=== PATIENT | female | born 1930 | race Caucasian/White ===

== ENCOUNTER 2016-12-05 17:46 | Emergency (ER) | payer OTHER ==
[~2016-12-05] VITALS: Ht 160 cm; Wt 82.7 kg
[~2016-12-05 17:46] MED LIST: ASPEC81 PO; BUME0.5T3 PO; DIGO0.122 PO; GLC500 PO; LOSA1TAB PO; METO50TA17 PO; MULT-831 PO; NAPR220T40 PO; OMEG10007 PO
[2016-12-05 18:00] VITALS: TEMP 36.3; Ht 160 cm; Wt 82.7 kg
[2016-12-05] MEDS ORDERED: ASPI81TA28 PO (18:16)
[2016-12-05] MEDS ORDERED: SPRIN/30 INH (18:22)
[2016-12-05 19:08] LABS: URINE APPEARANCE CLEAR (CLEAR); URINE BILIRUBIN NEG (NEG); URINE COLOR YELLOW; URINE EPITHELIAL CELL AUTO 0-5 /lpf (0-5); URINE NITRITE NEG (NEG); URINE PH 5.5 (4.5-7.5); UROBILINOGEN NEG (NEG); ZZURINE CULT IF INDIC CATH NO
[2016-12-05 19:12] LABS: MANUAL MICROSCOPIC REQUIRED? NO; REVIEW REQ? NO
--- NOTE | 2016-12-05 19:30 | DIAGNOSTIC IMAGING REPORT ---
CHEST ONE VIEW PORTABLE CLINICAL HISTORY: 86 years-old Female presenting with AMS. TECHNIQUE: Portable upright AP view of the chest was obtained. COMPARISON: 03/18/2013. FINDINGS: Left-sided pacer with leads to the right atrium and right ventricular apex. Mild enlargement of the cardiac silhouette. Prominence of main pulmonary artery. Atherosclerosis of the aortic arch. Hazy bibasilar groundglass opacities. Trace right pleural effusion may be present. Osseous structures and upper abdomen normal. IMPRESSION: 1. Hazy bibasilar opacities in the setting of cardiomegaly suggests mild pulmonary edema. Electronically signed by: Live Middleton M.D. 12/05/2016 7:29 PM Dictated Date/Time: 12/05/2016 7:27 PM
[2016-12-05 19:39] LABS: BASO ABS # 0.06 K/uL (0-0.2); COMPLETE YES; EOS % 1.1 %; HEMATOCRIT 39.9 % (37-47); IG% 0.2 %; LYMPH % 31.2 %; LYMPH ABS # 1.94 K/uL (1.2-3.4); MEAN CELL VOLUME 91.3 fL (80-100); MEAN CORPUSCULAR HEMOGLOBIN 31.8 pg (25-34); MEAN CORPUSCULAR HGB CONC 34.8 g/dl (32-36); MEAN PLATELET VOLUME 10.1 fL (7.4-10.4); NEUT % 53.5 %; PLATELET COUNT 164 K/uL (130-400); RED BLOOD COUNT 4.37 M/uL (4.2-5.4); WHITE BLOOD COUNT 6.22 K/uL (4.8-10.8)
--- NOTE | 2016-12-05 19:48 | DIAGNOSTIC IMAGING REPORT ---
CT OF THE HEAD WITHOUT CONTRAST CLINICAL HISTORY: Altered mental status. COMPARISON STUDY: Head CT March 15, 2013 and MRI of the brain March 16, 2013. CT DOSE: 537.48 mGy.cm TECHNIQUE: Helical axial images of the head were obtained without IV contrast. Automated exposure control was utilized for the study. FINDINGS: No acute intracranial hemorrhage, midline shift or mass effect is present. Ventricular system is stable. Basilar cisterns are patent. There are no extra-axial collections. White matter hypodensity suggests small vessel disease. There are no CT findings to suggest acute dural sinus thrombosis or acute territorial infarct. The left mastoid air cells are largely opacified. There are no significant calvarial abnormality. IMPRESSION: 1. No acute intracranial findings. 2. Largely opacified left mastoid air cells. Electronically signed by: Connor Salinas M.D. 12/05/2016 7:47 PM Dictated Date/Time: 12/05/2016 7:41 PM
[2016-12-05 19:58] LABS: BUN/CREATININE RATIO 17.8 (10-20); CALCIUM 9.8 mg/dl (8.5-10.1)
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
[2016-12-06] MEDS ORDERED: METOPROLOL TARTRATE 50 MG TAB PO STA (00:04)
--- NOTE | 2016-12-06 04:25 | EMERGENCY ROOM VISIT NOTE ---
ED Visit Note First contact with patient: 02:04 This case was signed out to me at change of shift awaiting bed placement. The patient is currently resting. The bed search was suspended and will resume in the morning. 0420: The patient is sleeping at this time. I will prescribe her morning medications. The case will be signed out to Dr. Milan at change of shift. The bed search will resume.
--- NOTE | 2016-12-06 06:58 | EMERGENCY ROOM VISIT NOTE ---
ED Visit Note First contact with patient: 06:54 The patient was taken in signout from Dr. Coelho at the change of shift. Please see that note for details. The patient was pending bed placement on a 302 warrant. Daily medications were ordered. The patient was reassessed and was in good spirits. She was accepted at [facility] and was transferred.
[2016-12-06] MEDS ORDERED: METO25TA56 PO (09:38)
[2016-12-06] MEDS ORDERED: TIOTROPIUM BROMIDE 5 PUFF/90 MCG INH INH STA (10:09)
[2016-12-06] MEDS ORDERED: METOPROLOL TARTRATE 25 MG TAB PO STA (10:09)
[2016-12-06] MEDS ORDERED: ASPIRIN 81 MG CHEW PO STA (10:09)
[2016-12-06] MEDS ORDERED: BUMETANIDE 1 MG TAB PO ONE (10:15)
[2016-12-06] MEDS ORDERED: APR/25 PO (11:07)
[2016-12-06 16:34] VITALS: BP 136/70; PULSE 88; O2SAT 96
== END 2016-12-06 16:49 | disposition short-term general hospital (02) ==
LOC: C.EDB 17:47 → C.EDA 12-06 16:49
DX: F39 Unspecified mood [affective] disorder (principal); F22 Delusional disorders; I48.91 Unspecified atrial fibrillation; J44.9 Chronic obstructive pulmonary disease, unspecified; E11.9 Type 2 diabetes mellitus without complications; I44.7 Left bundle-branch block, unspecified; Z87.891 Personal history of nicotine dependence; Z79.82 Long term (current) use of aspirin; Z83.3 Family history of diabetes mellitus

== ENCOUNTER 2016-12-19 19:33 | Emergency (ER) | payer OTHER ==
[~2016-12-19] VITALS: Ht 160 cm; Wt 80.0 kg
[~2016-12-19 19:33] MED LIST changes: +APR/25 PO; -ASPEC81 PO; +ASPI81TA28 PO; -DIGO0.122 PO; -GLC500 PO; -LOSA1TAB PO; +METO25TA56 PO; -METO50TA17 PO; -OMEG10007 PO; +SPRIN/30 INH
[2016-12-19 19:41] VITALS: TEMP 36.6; Ht 160 cm; Wt 80.0 kg
[2016-12-19] MEDS ORDERED: RISP2TAB22 PO (20:19)
[2016-12-19 20:36] LABS: BASO % 0.7 %; BASO ABS # 0.05 K/uL (0-0.2); COMPLETE YES; EOS % 1.6 %; IG% 0.3 %; LYMPH % 28.9 %; LYMPH ABS # 2.17 K/uL (1.2-3.4); MEAN CELL VOLUME 90.5 fL (80-100); MEAN CORPUSCULAR HEMOGLOBIN 31.6 pg (25-34); MEAN CORPUSCULAR HGB CONC 34.9 g/dl (32-36); MEAN PLATELET VOLUME 10.5 fL (7.4-10.4); MONO % 9.9 %; NEUT % 58.6 %; PLATELET COUNT 159 K/uL (130-400); RED BLOOD COUNT 4.31 M/uL (4.2-5.4); WHITE BLOOD COUNT 7.51 K/uL (4.8-10.8)
[2016-12-19 20:43] LABS: CALCIUM 9.6 mg/dl (8.5-10.1); CREATININE 1.4 mg/dl (0.60-1.20)
[2016-12-19 20:54] LABS: THYROID STIMULATING HORMONE 2.99 uIu/ml (0.300-4.500)
[2016-12-19 21:01] LABS: ACETAMINOPHEN < 2 ug/ml (10-30)
[2016-12-19 21:16] LABS: MANUAL MICROSCOPIC REQUIRED? NO; REVIEW REQ? NO; URINE APPEARANCE TURBID (CLEAR); URINE BILIRUBIN NEG (NEG); URINE COLOR DK YELLOW; URINE EPITHELIAL CELL AUTO >30 /lpf (0-5); URINE NITRITE POS (NEG); URINE SPECIFIC GRAVITY 1.014 (1.000-1.030); UROBILINOGEN NEG (NEG); ZZUR CULT IF INDIC CLEAN CATCH YES
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
[2016-12-19 21:41] LABS: BENZODIAZEPINE, URINE NEG (NEG); COCAINE,URINE NEG (NEG); PHENCYCLIDINE, URINE NEG (NEG)
[2016-12-19] MEDS ORDERED: CEPHALEXIN MONOHYDRATE 250 MG CAP PO ONE (22:00)
[2016-12-20] MEDS ORDERED: TEMAZEPAM 15 MG CAP PO STA (00:19)
--- NOTE | 2016-12-20 03:48 | EMERGENCY ROOM VISIT NOTE ---
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 Current/Historical Medications Scheduled Aspirin (Aspirin Ec), 81 MG PO DAILY Hydralazine HCl (Hydralazine HCl), 0.5 TAB PO BID Metoprolol Tartrate (Lopressor) (Lopressor), 1 TAB PO BID Multiple Vitamins W/ Minerals (Icaps Lutein & Zeaxanthin), 1 CAP PO DAILY Risperidone (Risperdal), Unknown Dose PO HS Tiotropium [place] (Spiriva Handihaler), 1 CAP INH BID Scheduled PRN Bumetanide (Bumetanide), 0.5 MG PO DAILY PRN for WATER RETENTION Naproxen Sodium (Aleve), 220 MG PO for Pain Allergies Coded Allergies: Sulfa Antibiotics (Verified Allergy, Intermediate, ?, 12/19/16) Mesalamine (Verified Allergy, Mild, 12/19/16) BEE STING (Verified Allergy, Unknown, 12/19/16) Furosemide (Verified Allergy, Unknown, 12/19/16) Propofol (Verified Adverse Reaction, Severe, AFFECTED HER HEART, 12/19/16) SHE HAS A PACEMAKER Warfarin (Verified Adverse Reaction, Severe, ANTICOAG CONTRAIND-COLITIS/ GI BLEED, 12/19/16) Vital Signs Date Time Temp Pulse Resp B/P (MAP) Pulse Ox O2 Delivery O2 Flow Rate FiO2 12/19/16 23:58 67 18 139/64 94 Room Air 12/19/16 19:41 36.6 65 16 129/70 93 Room Air Laboratory Results 12/19/16 20:07 Red Blood Count 4.31, Mean Corpuscular Volume 90.5, Mean Corpuscular Hemoglobin 31.6, Mean Corpuscular Hemoglobin Concent 34.9, Mean Platelet Volume 10.5, Neutrophils (%) (Auto) 58.6, Lymphocytes (%) (Auto) 28.9, Monocytes (%) (Auto) 9.9, Eosinophils (%) (Auto) 1.6, Basophils (%) (Auto) 0.7, Neutrophils # (Auto) 4.41, Lymphocytes # (Auto) 2.17, Monocytes # (Auto) 0.74, Eosinophils # (Auto) 0.12, Basophils # (Auto) 0.05 12/19/16 20:07 Test 12/19/16 20:07 12/19/16 21:00 White Blood Count 7.51 K/uL (4.8-10.8) Red Blood Count 4.31 M/uL (4.2-5.4) Hemoglobin 13.6 g/dL (12.0-16.0) Hematocrit 39.0 % (37-47) Mean Corpuscular Volume 90.5 fL (80-100) Mean Corpuscular Hemoglobin 31.6 pg (25-34) Mean Corpuscular Hemoglobin Concent 34.9 g/dl (32-36) Platelet Count 159 K/uL (130-400) Mean Platelet Volume 10.5 fL (7.4-10.4) Neutrophils (%) (Auto) 58.6 % Lymphocytes (%) (Auto) 28.9 % Monocytes (%) (Auto) 9.9 % Eosinophils (%) (Auto) 1.6 % Basophils (%) (Auto) 0.7 % Neutrophils # (Auto) 4.41 K/uL (1.4-6.5) Lymphocytes # (Auto) 2.17 K/uL (1.2-3.4) Monocytes # (Auto) 0.74 K/uL (0.11-0.59) Eosinophils # (Auto) 0.12 K/uL (0-0.5) Basophils # (Auto) 0.05 K/uL (0-0.2) RDW Standard Deviation 43.7 fL (36.4-46.3) RDW Coefficient of Variation 13.3 % (11.5-14.5) Immature Granulocyte % (Auto) 0.3 % Immature Granulocyte # (Auto) 0.02 K/uL (0.00-0.02) Anion Gap 10.0 mmol/L (3-11) Est Creatinine Clear Calc Drug Dose 28.9 ml/min Estimated GFR () 39.3 Estimated GFR (Non- 33.9 BUN/Creatinine Ratio 18.0 (10-20) Calcium Level 9.6 mg/dl (8.5-10.1) Total Bilirubin 0.5 mg/dl (0.2-1) Direct Bilirubin 0.1 mg/dl (0-0.2) Aspartate Amino Transf (AST/SGOT) 22 U/L (15-37) Alanine Aminotransferase (ALT/SGPT) 33 U/L (12-78) Alkaline Phosphatase 76 U/L (45-117) Total Protein 7.7 gm/dl (6.4-8.2) Albumin 3.7 gm/dl (3.4-5.0) Thyroid Stimulating Hormone (TSH) 2.990 uIu/ml (0.300-4.500) Salicylates Level < 1.7 mg/dl (2.8-20) Acetaminophen Level < 2 ug/ml (10-30) Ethyl Alcohol mg/dL < 3.0 mg/dl (0-3) Urine Color DK YELLOW Urine Appearance TURBID (CLEAR) Urine pH 5.0 (4.5-7.5) Urine Specific [place] 1.014 (1.000-1.030) Urine Protein TRACE (NEG) Urine Glucose (UA) NEG (NEG) Urine Ketones NEG (NEG) Urine Occult Blood TRACE (NEG) Urine Nitrite POS (NEG) Urine Bilirubin NEG (NEG) Urine Urobilinogen NEG (NEG) Urine Leukocyte Esterase LARGE (NEG) Urine WBC (Auto) >30 /hpf (0-5) Urine RBC (Auto) 0-4 /hpf (0-4) Urine Hyaline Casts (Auto) 0 /lpf (0-5) Urine Epithelial Cells (Auto) >30 /lpf (0-5) Urine Bacteria (Auto) 4+ (NEG) Urine Opiates Screen NEG (NEG) Urine Methadone, Qualitative NEG (NEG) Urine Barbiturates NEG (NEG) Urine Phencyclidine (PCP) Level NEG (NEG) Ur Amphetamine/Methamphetamine NEG (NEG) MDMA (Ecstasy) Screen NEG (NEG) Urine Benzodiazepines Screen NEG (NEG) Urine Cocaine Metabolite NEG (NEG) Urine Marijuana (THC) NEG (NEG) Medications Administered Medications (Trade) Dose Ordered Sig/Vero Route Start Time Stop Time Status Last Admin Dose Admin Cephalexin Monohydrate (Keflex Cap) 500 mg NOW ONCE PO 12/19/16 22:00 12/19/16 22:01 DC 12/19/16 22:02 500 MG Temazepam (Restoril Cap) 15 mg ONE STAT PO 12/20/16 00:19 12/20/16 00:20 DC 12/20/16 00:39 15 MG Departure Information Impression Primary Impression: Paranoia (psychosis) Additional Impression: UTI (urinary tract infection) Dispostion Still a Patient Referrals Carol Mccarty M.D. (PCP) Forms HOME CARE DOCUMENTATION FORM, IMPORTANT VISIT INFORMATION Patient Instructions [facility] Additional Instructions Diagnosis: UTI, paranoia Keflex 500 mg three times daily for 7 days. Drink plenty of fluids. Problem Qualifiers
[2016-12-20] MEDS ORDERED: METOPROLOL TARTRATE 25 MG TAB PO SCH (08:45)
[2016-12-20] MEDS ORDERED: METOPROLOL TARTRATE 50 MG TAB ONE (09:14)
--- NOTE | 2016-12-20 16:29 | EMERGENCY ROOM VISIT NOTE ---
ED Visit Note Patient resting comfortably with no complaints. Patient signed out to Dr. Granados at 4:30 PM awaiting transport for placement.
[2016-12-20] MEDS ORDERED: TIOTROPIUM BROMIDE 5 PUFF/90 MCG INH INH SCH (16:30)
--- NOTE | 2016-12-20 17:07 | EMERGENCY ROOM VISIT NOTE ---
ED Visit Note Received patient in signout from Dr. Levine. Patient will be transferred to mental health acute care. 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 Current/Historical Medications Scheduled Aspirin (Aspirin Ec), 81 MG PO DAILY Hydralazine HCl (Hydralazine HCl), 0.5 TAB PO BID Metoprolol Tartrate (Lopressor) (Lopressor), 1 TAB PO BID Multiple Vitamins W/ Minerals (Icaps Lutein & Zeaxanthin), 1 CAP PO DAILY Risperidone (Risperdal), Unknown Dose PO HS Tiotropium [place] (Spiriva Handihaler), 1 CAP INH BID Scheduled PRN Bumetanide (Bumetanide), 0.5 MG PO DAILY PRN for WATER RETENTION Naproxen Sodium (Aleve), 220 MG PO for Pain Allergies Coded Allergies: Sulfa Antibiotics (Verified Allergy, Intermediate, ?, 12/19/16) Mesalamine (Verified Allergy, Mild, 12/19/16) BEE STING (Verified Allergy, Unknown, 12/19/16) Furosemide (Verified Allergy, Unknown, 12/19/16) Propofol (Verified Adverse Reaction, Severe, AFFECTED HER HEART, 12/19/16) SHE HAS A PACEMAKER Warfarin (Verified Adverse Reaction, Severe, ANTICOAG CONTRAIND-COLITIS/ GI BLEED, 12/19/16) Vital Signs Date Time Temp Pulse Resp B/P (MAP) Pulse Ox O2 Delivery O2 Flow Rate FiO2 12/20/16 13:56 145/82 12/20/16 13:44 68 22 161/74 94 Nasal Cannula 2.0 12/20/16 11:15 61 20 110/65 95 Nasal Cannula 2.0 12/20/16 09:00 69 20 144/72 98 Nasal Cannula 2.0 12/20/16 06:00 20 NIBP 99 Nasal Cannula 2.0 12/19/16 23:58 67 18 139/64 94 Room Air 12/19/16 19:41 36.6 65 16 129/70 93 Room Air Laboratory Results 12/19/16 20:07 Red Blood Count 4.31, Mean Corpuscular Volume 90.5, Mean Corpuscular Hemoglobin 31.6, Mean Corpuscular Hemoglobin Concent 34.9, Mean Platelet Volume 10.5, Neutrophils (%) (Auto) 58.6, Lymphocytes (%) (Auto) 28.9, Monocytes (%) (Auto) 9.9, Eosinophils (%) (Auto) 1.6, Basophils (%) (Auto) 0.7, Neutrophils # (Auto) 4.41, Lymphocytes # (Auto) 2.17, Monocytes # (Auto) 0.74, Eosinophils # (Auto) 0.12, Basophils # (Auto) 0.05 12/19/16 20:07 Test 12/19/16 20:07 12/19/16 21:00 White Blood Count 7.51 K/uL (4.8-10.8) Red Blood Count 4.31 M/uL (4.2-5.4) Hemoglobin 13.6 g/dL (12.0-16.0) Hematocrit 39.0 % (37-47) Mean Corpuscular Volume 90.5 fL (80-100) Mean Corpuscular Hemoglobin 31.6 pg (25-34) Mean Corpuscular Hemoglobin Concent 34.9 g/dl (32-36) Platelet Count 159 K/uL (130-400) Mean Platelet Volume 10.5 fL (7.4-10.4) Neutrophils (%) (Auto) 58.6 % Lymphocytes (%) (Auto) 28.9 % Monocytes (%) (Auto) 9.9 % Eosinophils (%) (Auto) 1.6 % Basophils (%) (Auto) 0.7 % Neutrophils # (Auto) 4.41 K/uL (1.4-6.5) Lymphocytes # (Auto) 2.17 K/uL (1.2-3.4) Monocytes # (Auto) 0.74 K/uL (0.11-0.59) Eosinophils # (Auto) 0.12 K/uL (0-0.5) Basophils # (Auto) 0.05 K/uL (0-0.2) RDW Standard Deviation 43.7 fL (36.4-46.3) RDW Coefficient of Variation 13.3 % (11.5-14.5) Immature Granulocyte % (Auto) 0.3 % Immature Granulocyte # (Auto) 0.02 K/uL (0.00-0.02) Anion Gap 10.0 mmol/L (3-11) Est Creatinine Clear Calc Drug Dose 28.9 ml/min Estimated GFR () 39.3 Estimated GFR (Non- 33.9 BUN/Creatinine Ratio 18.0 (10-20) Calcium Level 9.6 mg/dl (8.5-10.1) Total Bilirubin 0.5 mg/dl (0.2-1) Direct Bilirubin 0.1 mg/dl (0-0.2) Aspartate Amino Transf (AST/SGOT) 22 U/L (15-37) Alanine Aminotransferase (ALT/SGPT) 33 U/L (12-78) Alkaline Phosphatase 76 U/L (45-117) Total Protein 7.7 gm/dl (6.4-8.2) Albumin 3.7 gm/dl (3.4-5.0) Thyroid Stimulating Hormone (TSH) 2.990 uIu/ml (0.300-4.500) Salicylates Level < 1.7 mg/dl (2.8-20) Acetaminophen Level < 2 ug/ml (10-30) Ethyl Alcohol mg/dL < 3.0 mg/dl (0-3) Urine Color DK YELLOW Urine Appearance TURBID (CLEAR) Urine pH 5.0 (4.5-7.5) Urine Specific [place] 1.014 (1.000-1.030) Urine Protein TRACE (NEG) Urine Glucose (UA) NEG (NEG) Urine Ketones NEG (NEG) Urine Occult Blood TRACE (NEG) Urine Nitrite POS (NEG) Urine Bilirubin NEG (NEG) Urine Urobilinogen NEG (NEG) Urine Leukocyte Esterase LARGE (NEG) Urine WBC (Auto) >30 /hpf (0-5) Urine RBC (Auto) 0-4 /hpf (0-4) Urine Hyaline Casts (Auto) 0 /lpf (0-5) Urine Epithelial Cells (Auto) >30 /lpf (0-5) Urine Bacteria (Auto) 4+ (NEG) Urine Opiates Screen NEG (NEG) Urine Methadone, Qualitative NEG (NEG) Urine Barbiturates NEG (NEG) Urine Phencyclidine (PCP) Level NEG (NEG) Ur Amphetamine/Methamphetamine NEG (NEG) MDMA (Ecstasy) Screen NEG (NEG) Urine Benzodiazepines Screen NEG (NEG) Urine Cocaine Metabolite NEG (NEG) Urine Marijuana (THC) NEG (NEG) Medications Administered Medications (Trade) Dose Ordered Sig/Vero Route Start Time Stop Time Status Last Admin Dose Admin Cephalexin Monohydrate (Keflex Cap) 500 mg NOW ONCE PO 12/19/16 22:00 12/19/16 22:01 DC 12/19/16 22:02 500 MG Temazepam (Restoril Cap) 15 mg ONE STAT PO 12/20/16 00:19 12/20/16 00:20 DC 12/20/16 00:39 15 MG Metoprolol Tartrate (Lopressor Tab) 50 mg STK-MED ONCE .ROUTE 12/20/16 09:14 12/20/16 09:15 DC 12/20/16 09:19 25 MG Hydralazine HCl (Apresoline Tab) 25 mg STK-MED ONCE .ROUTE 12/20/16 09:14 12/20/16 09:15 DC 12/20/16 09:18 25 MG Tiotropium [place] (Spiriva Handihaler Inhaler) 1 puff NOW INH 12/20/16 16:30 01/19/17 16:29 12/20/16 16:56 1 PUFF Departure Information Impression Primary Impression: Paranoia (psychosis) Additional Impression: UTI (urinary tract infection) Dispostion Mental Health Acute Care Condition [facility]IR Referrals Carol Mccarty M.D. (PCP) Forms HOME CARE DOCUMENTATION FORM, IMPORTANT VISIT INFORMATION Patient Instructions [facility] Additional Instructions Diagnosis: UTI, paranoia Keflex 500 mg three times daily for 7 days. Drink plenty of fluids. Problem Qualifiers
[2016-12-20] MEDS ORDERED: METOPROLOL TARTRATE 50 MG TAB PO STA (18:57)
[2016-12-20] MEDS ORDERED: CEPHALEXIN MONOHYDRATE 250 MG CAP PO ONE (19:00)
[2016-12-20 20:24] VITALS: BP 101/55; PULSE 76; O2SAT 97
--- NOTE | 2016-12-21 13:05 | Pharmacy Progress Note ---
ED Pharmacist Culture FollowUp Date of Service: Dec 21, 2016. Per Dr. Granados's note / discharge instructions, patient should be receiving cephalexin, which should cover the Klebsiella pneumoniae growing from the patient's urine culture based on reported sensitivity to cefazolin.
--- NOTE | 2016-12-23 13:48 | EMERGENCY ROOM VISIT NOTE ---
ED Visit Note First contact with patient: 19:54 This patient was accepted at [facility] for inpatient geriatric psychiatric care. Secure transportation arrangements were made.
== END 2016-12-20 20:25 ==
LOC: C.EDB 19:35 → C.EDA 12-20 20:25
DX: F22 Delusional disorders (principal); N39.0 Urinary tract infection, site not specified; J44.9 Chronic obstructive pulmonary disease, unspecified; E11.9 Type 2 diabetes mellitus without complications; I48.91 Unspecified atrial fibrillation; Z87.891 Personal history of nicotine dependence; Z83.3 Family history of diabetes mellitus; Z79.82 Long term (current) use of aspirin; Z79.899 Other long term (current) drug therapy

== ENCOUNTER 2017-02-18 05:05 | Emergency (ER) | payer OTHER ==
[~2017-02-18] VITALS: Ht 160 cm; Wt 83.5 kg
[~2017-02-18 05:05] MED LIST changes: +RISP2TAB22 PO
[2017-02-18 05:12] VITALS: TEMP 36.5; Ht 160 cm; Wt 83.5 kg
--- NOTE | 2017-02-18 06:26 | EMERGENCY ROOM VISIT NOTE ---
History Report prepared by Elier: Rufino Dillon Under the Supervision of: Dr. Bridgette Nair M.D. First contact with patient: 05:13 Chief Complaint: SHORTNESS OF BREATH Stated Complaint: SHORT OF BREATH Nursing Triage Summary: Pt arrives S for evalution of sudden onset of sob r/t power loss; O2 concentrater not working. History of Present Illness The patient is a 86 year old female who presents to the Emergency Room with complaints of shortness of breath starting this morning after her power went out , so her oxygen flow shut off. She states that she is normally on 2L of oxygen at home, and this morning she woke up when it shut off. She then went outside to get fresh air, and she could still not catch her breath so she called the ambulance. The patient states that she has not seen her PCP in a long time, lives alone, and she is unsure if she is on the correct dosage of medications and oxygen. She additionally she normally takes bumetanide, though she has not taken it the past few days, and her legs feel more swollen. The patient states that she has been having a cold recently and is having a runny nose and a cough. The patient has a history of A-fib, COPD, diabetes, and kidney disease. She also states that she is a former smoker. Source of History: patient Onset: this morning Position: other (global) Quality: other (shortness of breath) Timing: constant Associated Symptoms: + cough Note: Associated symptoms: Runny nose Review of Systems See HPI for pertinent positives & negatives. A total of 10 systems reviewed and were otherwise negative. 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, TYPE II OR UNSPEC TYPE, NOT UNCNTRLD Family History Diabetes mellitus FH: cancer FH: heart disease Social History Smoking Status: Former Smoker Marital Status: Housing Status: lives alone Occupation Status: retired Current/Historical Medications Scheduled Aspirin (Aspirin Ec), 81 MG PO Q2D Metoprolol Tartrate (Lopressor) (Lopressor), 50 MG PO BID Multiple Vitamins W/ Minerals (Icaps Lutein & Zeaxanthin), 1 CAP PO BID Tiotropium [place] (Spiriva Handihaler), 1 CAP INH BID Scheduled PRN Bumetanide (Bumetanide), 0.5 MG PO DAILY PRN for WATER RETENTION Naproxen Sodium (Aleve), 220 MG PO UD PRN for Pain Allergies Coded Allergies: Sulfa Antibiotics (Verified Allergy, Intermediate, ?, 12/19/16) Mesalamine (Verified Allergy, Mild, 12/19/16) BEE STING (Verified Allergy, Unknown, 12/19/16) Furosemide (Verified Allergy, Unknown, 12/19/16) Propofol (Verified Adverse Reaction, Severe, AFFECTED HER HEART, 12/19/16) SHE HAS A PACEMAKER Warfarin (Verified Adverse Reaction, Severe, ANTICOAG CONTRAIND-COLITIS/ GI BLEED, 12/19/16) Physical Exam Vital Signs Date Time Temp Pulse Resp B/P (MAP) Pulse Ox O2 Delivery O2 Flow Rate FiO2 02/18/17 05:24 Room Air 02/18/17 05:14 93 Nasal Cannula 3.0 02/18/17 05:12 36.5 78 24 172/87 95 Nasal Cannula Physical Exam Vital signs reviewed. General: Elderly-appearing female, in no significant distress. On nasal cannula oxygen. HEENT: No scleral icterus, PERRLA, neck supple. Atraumatic. Cardiovascular: Regular rate and rhythm, no extra sounds. Pulmonary: Clear to auscultation bilaterally, normal work of breathing. Abdomen: Soft, nontender, nondistended, positive bowel sounds. Musculoskeletal: Atraumatic, 1+ pitting edema bilaterally. Neurologic: Patient awake alert and oriented x 3 Skin: Warm, dry, no rash Medical Decision & Procedures ED Course 0610: Past medical records reviewed. The patient was evaluated in room B5. A complete history and physical examination was performed. Medical Decision Differential diagnosis: Etiologies such as situational stressors, infections, reactive airway disease, pneumonia, pneumothorax, COPD, CHF, cardiac ischemia, pulmonary embolism, musculoskeletal, gastrointestinal, as well as others were entertained. This patient was evaluated and appeared to be in no significant distress. The patient is feeling much improved after supplemental nasal cannula oxygen was restarted. Pt has not been taking bumex so this was administered in the ED. Pt denies any complaints at this time, states her nasal congestion is improved. She declines and decongestants. The patient has a case aide through [employer]. The office on aging is due for a second visit tomorrow to help make arrangements for the patient's needs. She is comfortable with the plan for discharge and this will be arranged after the power is restored to her area. Impression Primary Impression: SOB (shortness of breath) Additional Impression: Supplemental oxygen dependent Scribe Attestation The scribe's documentation has been prepared under my direction and personally reviewed by me in its entirety. I confirm that the note above accurately reflects all work, treatment, procedures, and medical decision making performed by me. Departure Information Referrals Bree Red D.O. (PCP) Patient Instructions [facility] Problem Qualifiers
[2017-02-18] MEDS ORDERED: METO50TA16 PO (06:38)
[2017-02-18] MEDS ORDERED: BUMETANIDE 1 MG TAB PO ONE (07:00)
[2017-02-18 11:02] VITALS: BP 127/71; PULSE 61; O2SAT 95
== END 2017-02-18 11:40 | disposition home or self-care (01) ==
LOC: EDBD 05:05 → C.EDB 05:12
DX: R06.02 Shortness of breath (principal); Z99.81 Dependence on supplemental oxygen; I48.91 Unspecified atrial fibrillation; J44.9 Chronic obstructive pulmonary disease, unspecified; E11.9 Type 2 diabetes mellitus without complications; N28.9 Disorder of kidney and ureter, unspecified; Z87.891 Personal history of nicotine dependence; Z83.3 Family history of diabetes mellitus; Z80.9 Family history of malignant neoplasm, unspecified; Z79.82 Long term (current) use of aspirin; Z79.899 Other long term (current) drug therapy

== ENCOUNTER 2017-05-09 10:59 | Emergency (ER) | payer OTHER ==
[~2017-05-09] VITALS: Ht 160 cm; Wt 79.0 kg
[~2017-05-09 10:59] MED LIST changes: -APR/25 PO; -METO25TA56 PO; +METO50TA16 PO; -RISP2TAB22 PO
[2017-05-09 11:13] VITALS: TEMP 36.4; Ht 160 cm; Wt 79.0 kg
[2017-05-09 11:53] LABS: BASO ABS # 0.05 K/uL (0-0.2); COMPLETE YES; EOS % 1.6 %; HEMATOCRIT 40.4 % (37-47); IG% 0.2 %; LYMPH % 21.5 %; LYMPH ABS # 1.06 K/uL (1.2-3.4); MEAN CELL VOLUME 91.8 fL (80-100); MEAN CORPUSCULAR HEMOGLOBIN 31.1 pg (25-34); MEAN CORPUSCULAR HGB CONC 33.9 g/dl (32-36); NEUT % 63.7 %; PLATELET COUNT 126 K/uL (130-400); WHITE BLOOD COUNT 4.92 K/uL (4.8-10.8)
[2017-05-09 12:10] LABS: BUN/CREATININE RATIO 25.1 (10-20); CALCIUM 9.4 mg/dl (8.5-10.1); CREATININE 0.97 mg/dl (0.60-1.20); POTASSIUM 4.4 mmol/L (3.5-5.1)
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
[2017-05-09 16:22] VITALS: BP 123/76; PULSE 79; O2SAT 97
== END 2017-05-09 16:23 | disposition home or self-care (01) ==
LOC: C.EDC 10:59 → EDBD 10:59 → C.EDC 16:23
DX: K62.5 Hemorrhage of anus and rectum (principal); Z80.0 Family history of malignant neoplasm of digestive organs; Z79.899 Other long term (current) drug therapy; I48.91 Unspecified atrial fibrillation; J44.9 Chronic obstructive pulmonary disease, unspecified; E11.9 Type 2 diabetes mellitus without complications; Z83.3 Family history of diabetes mellitus; Z80.9 Family history of malignant neoplasm, unspecified; Z87.891 Personal history of nicotine dependence; Z79.82 Long term (current) use of aspirin

== ENCOUNTER 2017-07-28 05:08 | Inpatient (IN) | payer OTHER ==
[2017-07-28] VITALS (9 sets, daily range): BP systolic 93–147; BP diastolic 54–83; PULSE 60–83; TEMP 36.3–36.5; O2SAT 92–96; Ht 160 cm; Wt 78.2 kg
[~2017-07-28] VITALS: Ht 160 cm; Wt 78.2 kg
[2017-07-28] MEDS ORDERED: ALBUT/IPRATROP 3MG/0.5MG NEB 3 ML VIAL INH STA (05:23)
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
[2017-07-28 05:49] LABS: BASO ABS # 0.06 K/uL (0-0.2); EOS % 1.8 %; EOS ABS # 0.11 K/uL (0-0.5); HEMATOCRIT 37.7 % (37-47); HEMOGLOBIN 12.9 g/dL (12.0-16.0); IG# 0.01 K/uL (0.00-0.02); LYMPH % 26.7 %; LYMPH ABS # 1.61 K/uL (1.2-3.4); MEAN CELL VOLUME 91.7 fL (80-100); MEAN CORPUSCULAR HEMOGLOBIN 31.4 pg (25-34); MEAN CORPUSCULAR HGB CONC 34.2 g/dl (32-36); MEAN PLATELET VOLUME 10.2 fL (7.4-10.4); MONO % 12.3 %; MONO ABS # 0.74 K/uL (0.11-0.59); NEUT ABS # 3.51 K/uL (1.4-6.5); PLATELET COUNT 119 K/uL (130-400); RED CELL DISTRIBUTION WIDTH CV 14.5 % (11.5-14.5); RED CELL DISTRIBUTION WIDTH SD 48.4 fL (36.4-46.3); WHITE BLOOD COUNT 6.04 K/uL (4.8-10.8)
[2017-07-28 05:59] LABS: BLOOD UREA NITROGEN 25 mg/dl (7-18); CALCIUM 9.4 mg/dl (8.5-10.1); CARBON DIOXIDE 23 mmol/L (21-32); CREATININE 1.08 mg/dl (0.60-1.20); GLUCOSE 128 mg/dl (70-99); POTASSIUM 4.4 mmol/L (3.5-5.1); SODIUM 134 mmol/L (136-145)
[2017-07-28] MEDS ORDERED: RISP0.5T4 PO (06:03)
[2017-07-28] MEDS ORDERED: VNTHFA/IN INH (06:06)
[2017-07-28] MEDS ORDERED: BUMETANIDE SOLN 1 MG/4 ML VIAL IV ONE (06:15)
--- NOTE | 2017-07-28 06:37 | DIAGNOSTIC IMAGING REPORT ---
SINGLE VIEW CHEST CLINICAL HISTORY: Dyspnea. FINDINGS: An AP, portable, upright chest radiograph is compared to study dated 12/05/2016. Correlation is made with chest CT dated 03/20/2013. The examination is degraded by portable technique and apical lordotic positioning. A 2-lead cardiac pacemaker partially obscures the left upper chest. The heart is enlarged and there is atherosclerotic calcification of the thoracic aorta. There is pulmonary vascular congestion and mild interstitial edema. There is emphysema and chronic interstitial thickening. Small pleural effusions are identified. No pneumothorax is seen. The skeletal structures are osteopenic. The bony thorax is grossly intact. IMPRESSION: 1. Cardiomegaly and cardiac pacemaker. There is evidence of congestive failure with mild interstitial edema. 2. Emphysema. 3. Small pleural effusions. Electronically signed by: Yakov Mendoza M.D. 07/28/2017 6:35 AM Dictated Date/Time: 07/28/2017 6:34 AM
[2017-07-28] MEDS ORDERED: NITROGLYCERIN 0.4 MG SL PER TAB CHARGE SL PRN (07:15)
[2017-07-28] MEDS ORDERED: PROCHLORPERAZINE INJ 5 MG in SYRINGE 4 ML IV PRN (07:15)
[2017-07-28] MEDS ORDERED: ALBUT/IPRATROP 3MG/0.5MG NEB 3 ML VIAL INH PRN (07:15)
[2017-07-28] MEDS ORDERED: ACETAMINOPHEN 325 MG TAB PO PRN (07:15)
[2017-07-28 07:26] LABS: PTT PATIENT 24.5 SECONDS (21.0-31.0)
[2017-07-28] MEDS: TIOTROPIUM BROMIDE 5 PUFF/90 MCG INH INH SCH (09:44)
[2017-07-28] MEDS: METOPROLOL TARTRATE 50 MG TAB PO SCH ×2 (09:44→20:24)
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
--- NOTE | 2017-07-28 11:23 | DIAGNOSTIC IMAGING REPORT ---
ULTRASOUND BILATERAL LOWER EXTREMITY VENOUS CLINICAL HISTORY: Lower extremity edema. COMPARISON STUDY: Bilateral lower extremity venous ultrasound dated 03/20/2013. TECHNIQUE: Real-time, grayscale, and color Doppler sonography of the deep veins of the right and left lower extremity was performed from the inguinal crease to the calf. Compression and augmentation were utilized. FINDINGS: There is no sonographic evidence of deep venous thrombosis identified in the right or left lower extremity. The common femoral, superficial femoral, and popliteal veins are patent and normally compressible bilaterally. The greater saphenous vein and the profunda femoris vein at the junction with the common femoral vein are clear in both legs. The visualized calf veins are patent bilaterally. IMPRESSION: There is no sonographic evidence of deep venous thrombosis identified in the right or left lower extremity. Electronically signed by: Yakov Mendoza M.D. 07/28/2017 11:22 AM Dictated Date/Time: 07/28/2017 11:22 AM
--- NOTE | 2017-07-28 12:26 | Progress Note ---
Subjective Date of Service: Jul 28, 2017. Subjective Pt evaluation today including: conversation w/ patient, physical exam, lab review, review of studies, review of inpatient medication list Saw/examined the patient in room 284 She is doing better today Breathing status improving No chest pain today swelling in the lower extremities improved Problem List Medical Problems: (1) Acute exacerbation of CHF (congestive heart failure) Status: Acute (2) Delusions Status: Acute (3) Medical non-compliance Status: Acute (4) Mood disorder Status: Acute (5) Paranoia (psychosis) Status: Acute (6) Rectal bleed Status: Acute (7) SOB (shortness of breath) Status: Acute (8) Supplemental oxygen dependent Status: Acute (9) UTI (urinary tract infection) Status: Acute Review of Systems Constitutional: No fever, No chills Respiratory: + shortness of breath (improving), + dyspnea on exertion, No cough , No sputum, No wheezing, No dyspnea at rest, No hemoptysis Cardiac: + edema, No chest pain (resolved), No palpitations Abdomen: No pain, No nausea, No vomiting, No diarrhea Medications Current Inpatient Medications Medications (Trade) Dose Ordered Sig/Vero Route Start Time Stop Time Status Last Admin Dose Admin Acetaminophen (Tylenol Tab) 650 mg Q4H PRN PO 07/28/17 07:15 08/27/17 07:14 Nitroglycerin (Nitrostat Tab) 0.4 mg UD PRN SL 07/28/17 07:15 08/27/17 07:14 Aspirin (Ecotrin Tab) 81 mg Q2D PO 07/30/17 07:15 08/29/17 07:14 Metoprolol Tartrate (Lopressor Tab) 25 mg BID PO 07/28/17 09:30 08/27/17 09:29 07/28/17 09:44 25 MG Risperidone (Risperdal Tab) 0.5 mg HS PO 07/28/17 21:00 08/27/17 20:59 Miscellaneous Information (Order Awaiting Action) 1 ea QS N/A 07/28/17 16:00 08/27/17 15:59 Tramadol HCl (Ultram Tab) 25 mg Q6H PRN PO 07/28/17 07:15 08/27/17 07:14 Prochlorperazine Edisylate 5 mg/ Syringe 5 ml @ 5 mls/min Q6H PRN IV 07/28/17 07:15 08/27/17 07:14 Albuterol/ Ipratropium (Duoneb) 3 ml Q2H PRN INH 07/28/17 07:15 08/27/17 07:14 Tiotropium [place] (Spiriva Handihaler Inhaler) 2 puff QAM INH 07/28/17 09:30 08/27/17 09:29 07/28/17 09:44 2 PUFF Bumetanide 1 mg/ Syringe 4 ml @ 4 mls/min 1700 ONCE IV 07/28/17 17:00 07/28/17 17:01 Objective Vital Signs Date Time Temp Pulse Resp B/P (MAP) Pulse Ox O2 Delivery O2 Flow Rate FiO2 07/28/17 08:45 36.5 83 18 147/81 95 Nasal Cannula 4.0 07/28/17 08:00 Room Air 07/28/17 07:16 62 20 155/79 95 Nasal Cannula 4.0 07/28/17 06:31 64 20 154/74 94 Nasal Cannula 4.0 07/28/17 06:02 62 17 149/74 93 Nasal Cannula 4.0 07/28/17 05:50 72 07/28/17 05:40 88 Nasal Cannula 2.0 07/28/17 05:31 66 24 156/84 93 Nasal Cannula 4.0 07/28/17 05:15 Room Air 07/28/17 05:15 Room Air 07/28/17 05:15 36.4 78 19 174/82 93 Nasal Cannula 4.0 Physical Exam General Appearance: no apparent distress Respiratory/Chest: no respiratory distress, no accessory muscle use, + decreased breath sounds (decreasing breath sounds at the bases), + pertinent finding (no wheezing, rhonchi, rales appreciated; pacemaker in the L chest wall) Cardiovascular: regular rate, rhythm, no edema, no murmur Extremities: normal range of motion, non-tender, normal inspection, no pedal edema, no calf tenderness Neurologic/Psychiatric: no motor/sensory deficits, alert, normal mood/affect Laboratory Results Last 24 Hours Test 07/28/17 04:55 07/28/17 07:03 07/28/17 07:11 White Blood Count 6.04 K/uL Red Blood Count 4.11 M/uL Hemoglobin 12.9 g/dL Hematocrit 37.7 % Mean Corpuscular Volume 91.7 fL Mean Corpuscular Hemoglobin 31.4 pg Mean Corpuscular Hemoglobin Concent 34.2 g/dl Platelet Count 119 K/uL Mean Platelet Volume 10.2 fL Neutrophils (%) (Auto) 58.0 % Lymphocytes (%) (Auto) 26.7 % Monocytes (%) (Auto) 12.3 % Eosinophils (%) (Auto) 1.8 % Basophils (%) (Auto) 1.0 % Neutrophils # (Auto) 3.51 K/uL Lymphocytes # (Auto) 1.61 K/uL Monocytes # (Auto) 0.74 K/uL Eosinophils # (Auto) 0.11 K/uL Basophils # (Auto) 0.06 K/uL RDW Standard Deviation 48.4 fL RDW Coefficient of Variation 14.5 % Immature Granulocyte % (Auto) 0.2 % Immature Granulocyte # (Auto) 0.01 K/uL Sodium Level 134 mmol/L Potassium Level 4.4 mmol/L Chloride Level 103 mmol/L Carbon Dioxide Level 23 mmol/L Anion Gap 8.0 mmol/L Blood Urea Nitrogen 25 mg/dl Creatinine 1.08 mg/dl Est Creatinine Clear Calc Drug Dose 38.4 ml/min Estimated GFR () 53.8 Estimated GFR (Non- 46.4 BUN/Creatinine Ratio 23.0 Random Glucose 128 mg/dl Calcium Level 9.4 mg/dl Magnesium Level 1.9 mg/dl Troponin I < 0.015 ng/ml Pro-B-Type Natriuretic Peptide 4443 pg/ml Thyroid Stimulating Hormone (TSH) 3.660 uIu/ml Chemistry Specimen Hemolysis Activated Partial Thromboplast Time 24.5 SECONDS Partial Thromboplastin Ratio 0.9 Carboxyhemoglobin 0.0 % [facility] Assessment and Plan This is an 86 year old female with a PMH of COPD and chronic respiratory failure on 2L of O2 continuously, paroxysmal atrial fibrillation s/p multiple ablations and s/p pacemaker in situ - not a anticoagulation candidate due to bleeding risk, ulcerative colitis with episodes of rectal bleed, CKD stage 3 - presents with worsening shortness of breath Acute on Chronic Hypoxic Respiratory Failure likely secondary to Pulmonary Hypertension last echo in 2014, noted to have a normal LVEF with elevated pulmonary systolic pressures patient presented with fluid overload; as noted on CXR and BNP testing given IV Bumex with good response she states she is feeling better chronically uses 2L of O2 cardiology consulted echo ordered and pending COPD does not appear to be in COPD exacerbation there is no wheezing on exam, no accessory muscle use, etc. will continue Spiriva and chronic O2 use Paroxysmal A. Fib she is ventricularly paced currently continue [id number]-jacinto not a candidate for anticoagulation; aspirin 81mg instead DVT ppx SCDs FULL CODE
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
--- NOTE | 2017-07-28 16:15 | ECHOCARDIOGRAM REPORT ---
*NOTICE TO RECEIVING [employer] This information is strictly Confidential and protected under [place] law. [place] law prohibits you from making any further disclosure of this information unless further disclosure is expressly permitted by the written consent of the person to whom it pertains or is authorized by law. A general authorization for the release of medical or other information is not sufficient for this purpose. Hospital accepts no responsibility if the information is made available to any other person, INCLUDING THE PATIENT. Interpretation Summary * Name: MEGA BE[place] Study Date: 07/28/2017 01:54 PM BP: 147/81 mmHg * Patient Location: [facility]\S\N284\[id number]\1 HR: 83 * : 1930 (M/d/yyyy) Gender: Female Height: 63 in * Age: 86 yrs Ethnicity: [place] Weight: 185 lb * Ordering Physician: Bakari Spencer * Referring Physician: Self, Referred * Performed By: Celina Almazan RDCS * * Reason For Study: Congestive Heart Failure * BSA: 1.9 m2 * -- Conclusions -- * There is moderate concentric left ventricular hypertrophy. * Ejection Fraction = 60-65%. * The right ventricle is moderately dilated. * The right ventricular systolic function is mild to moderately reduced. * The left atrium is severely dilated. * The right atrium is severely dilated. * There is moderate to severe tricuspid regurgitation. * There is mild to moderate mitral regurgitation. * Aortic valve sclerosis moderate, without significant aortic valvular stenosis. * Mild to moderate aortic regurgitation. * The pulmonary artery systolic pressure is estimated to be 68 mmHg. Procedure Details * A complete two-dimensional transthoracic echocardiogram was performed (2D, M-mode, Doppler and color flow Doppler). Left Ventricle * The left ventricle is normal in size. * There is moderate concentric left ventricular hypertrophy. * Ejection Fraction = 60-65%. Right Ventricle * The right ventricle is moderately dilated. * The right ventricular systolic function is mild to moderately reduced. Atria * The left atrium is severely dilated. * The right atrium is severely dilated. * No ASD detected; PFO is not assessed. Mitral Valve * There is severe mitral annular calcification. * The mitral valve is not well visualized. * There is mild to moderate mitral regurgitation. Tricuspid Valve * The tricuspid valve is not well visualized, but is grossly normal. * There is moderate to severe tricuspid regurgitation. Aortic Valve * Aortic valve sclerosis moderate, without significant aortic valvular stenosis. * Mild to moderate aortic regurgitation. Pulmonic Valve * The pulmonic valve is not well visualized. * There is no significant pulmonary regurgitation. Great Vessels * The pulmonary artery systolic pressure is estimated to be 68 mmHg. Pericardium/Pleural * There is no pericardial effusion. MMode 2D Measurements and Calculations IVSd 1.1 cm IVSs 1.6 cm LVIDd 4.7 cm LVIDs 2.9 cm LVPWd 1.2 cm LVPWs 1.9 cm IVS/LVPW 0.87 FS 39.4 % EDV(Teich) 104.0 ml ESV(Teich) 31.3 ml EF(Teich) 69.9 % EDV(cubed) 106.0 ml ESV(cubed) 23.6 ml EF(cubed) 77.8 % % IVS thick 52.4 % % LVPW thick 51.5 % LV mass(C)d 201.6 grams LV mass(C)dI 107.8 grams/m\S\2 LV mass(C)s 194.9 grams LV mass(C)sI 104.2 grams/m\S\2 SV(Teich) 72.7 ml SI(Teich) 38.9 ml/m\S\2 SV(cubed) 82.4 ml SI(cubed) 44.1 ml/m\S\2 Ao root diam 2.9 cm Ao root area 6.8 cm\S\2 ACS 2.1 cm LA dimension 4.2 cm LA/Ao 1.4 LVAd ap4 13.5 cm\S\2 LVLd ap4 5.5 cm EDV(MOD-sp4) 30.9 ml EDV(sp4-el) 28.3 ml LVAs ap4 8.2 cm\S\2 LVLs ap4 5.4 cm ESV(MOD-sp4) 11.6 ml ESV(sp4-el) 10.7 ml EF(MOD-sp4) 62.4 % EF(sp4-el) 62.2 % LVAd ap2 25.0 cm\S\2 LVLd ap2 6.9 cm EDV(MOD-sp2) 80.6 ml EDV(sp2-el) 77.1 ml LVAs ap2 13.8 cm\S\2 LVLs ap2 6.2 cm ESV(MOD-sp2) 27.4 ml ESV(sp2-el) 26.1 ml EF(MOD-sp2) 66.1 % EF(sp2-el) 66.2 % LVLd %diff 20.3 % EDV(MOD-bp) 55.0 ml LVLs %diff 12.9 % ESV(MOD-bp) 18.7 ml EF(MOD-bp) 66.0 % SV(MOD-sp4) 19.3 ml SI(MOD-sp4) 10.3 ml/m\S\2 SV(MOD-sp2) 53.3 ml SI(MOD-sp2) 28.5 ml/m\S\2 SV(MOD-bp) 36.3 ml SI(MOD-bp) 19.4 ml/m\S\2 SV(sp4-el) 17.6 ml SI(sp4-el) 9.4 ml/m\S\2 SV(sp2-el) 51.0 ml SI(sp2-el) 27.3 ml/m\S\2 Doppler Measurements and Calculations MV E max kathia 164.4 cm/sec MV A max kathia 46.7 cm/sec MV E/A 3.5 MV dec time 0.27 sec Ao V2 max 156.1 cm/sec Ao max PG 9.7 mmHg Ao max PG (full) 6.6 mmHg AI max kathia 319.7 cm/sec AI max PG 43.7 mmHg AI dec slope 154.7 cm/sec\S\2 AI P1/2t 605.2 msec LV V1 max PG 3.2 mmHg LV V1 max 89.3 cm/sec PA V2 max 103.8 cm/sec PA max PG 4.3 mmHg TR max kathia 412.6 cm/sec
[2017-07-28] MEDS ORDERED: BUMETANIDE IV 1 MG in SYRINGE 0 ML IV ONE (17:00)
[2017-07-28] MEDS: RISPERIDONE 0.5 MG TAB PO SCH (20:21)
[2017-07-29 02:42] VITALS: BP 144/81; PULSE 71; TEMP 36.4; O2SAT 94
[2017-07-29] MEDS: TRAMADOL HCL 50 MG TAB PO PRN ×2 (04:28→21:12)
[2017-07-29 06:23] LABS: BASO % 0.5 %; BASO ABS # 0.05 K/uL (0-0.2); EOS % 2.5 %; EOS ABS # 0.26 K/uL (0-0.5); HEMATOCRIT 38.9 % (37-47); HEMOGLOBIN 13.2 g/dL (12.0-16.0); IG# 0.02 K/uL (0.00-0.02); LYMPH % 13.6 %; LYMPH ABS # 1.39 K/uL (1.2-3.4); MEAN CELL VOLUME 92.6 fL (80-100); MEAN CORPUSCULAR HEMOGLOBIN 31.4 pg (25-34); MEAN CORPUSCULAR HGB CONC 33.9 g/dl (32-36); MEAN PLATELET VOLUME 10.3 fL (7.4-10.4); MONO % 11.5 %; MONO ABS # 1.18 K/uL (0.11-0.59); NEUT % 71.7 %; NEUT ABS # 7.34 K/uL (1.4-6.5); PLATELET COUNT 133 K/uL (130-400); RED CELL DISTRIBUTION WIDTH CV 14.5 % (11.5-14.5); RED CELL DISTRIBUTION WIDTH SD 48.7 fL (36.4-46.3); WHITE BLOOD COUNT 10.24 K/uL (4.8-10.8)
[2017-07-29 06:56] LABS: CALCIUM 9.6 mg/dl (8.5-10.1); CREATININE 1.42 mg/dl (0.60-1.20); POTASSIUM 3.9 mmol/L (3.5-5.1)
[2017-07-29 07:08] LABS: HEMOGLOBIN A1C 6.9 % (4.5-5.6)
[2017-07-29] MEDS: TIOTROPIUM BROMIDE 5 PUFF/90 MCG INH INH SCH (07:42)
[2017-07-29] MEDS: METOPROLOL TARTRATE 50 MG TAB PO SCH ×2 (07:43→21:06)
[2017-07-29 08:06] VITALS: BP 118/76; PULSE 60; TEMP 36.4; O2SAT 96
--- NOTE | 2017-07-29 09:19 | Cardiology Follow-Up ---
Subjective General Date of Service: Jul 29, 2017. Chief Complaint: SOB Pt evaluation today including: conversation w/ patient, physical exam, chart review, lab review, review of studies, review of inpatient medication list History of Present Illness Awoke Saturday AM with dyspnea and cough. Feels better in regards to the above following two doses of IV Bumex on 07/28/2017 Notes bilateral lower extremity cramps since admission Labs this AM with mild hyponatremia, mild renal dysfunction. July 28, 2017 TTE Interpretation Summary ([facility], Dr. Bellamy): There is moderate concentric left ventricular hypertrophy. Ejection Fraction = 60-65%. The right ventricle is moderately dilated. The right ventricular systolic function is mild to moderately reduced. The left atrium is severely dilated. The right atrium is severely dilated. There is moderate to severe tricuspid regurgitation. There is mild to moderate mitral regurgitation. Aortic valve sclerosis moderate, without significant aortic valvular stenosis. Mild to moderate aortic regurgitation. The pulmonary artery systolic pressure is estimated to be 68 mmHg EKG dated and timed July 29, 2017 at 06:30:07 revealed underlying atrial fibrillation, ventricular paced rhythm. Telemetry: Atrial fibrillation in the 60's. Ventricular paced rhythm. Allergies Coded Allergies: Sulfa Antibiotics (Verified Allergy, Intermediate, ?, 05/09/17) Mesalamine (Verified Allergy, Mild, 05/09/17) BEE STING (Verified Allergy, Unknown, 05/09/17) Furosemide (Verified Allergy, Unknown, 05/09/17) Propofol (Verified Adverse Reaction, Severe, AFFECTED HER HEART, 05/09/17) SHE HAS A PACEMAKER Warfarin (Verified Adverse Reaction, Severe, ANTICOAG CONTRAIND-COLITIS/ GI BLEED, 05/09/17) Social History Smoking Status: Former Smoker Hx Tobacco Use In Past Year?: No Hx Alcohol Use - Type And Amou: No Hx Substance Use - Type And Am: No Problem List Medical Problems: (1) Acute exacerbation of CHF (congestive heart failure) Status: Acute (2) Delusions Status: Acute (3) Medical non-compliance Status: Acute (4) Mood disorder Status: Acute (5) Paranoia (psychosis) Status: Acute (6) Rectal bleed Status: Acute (7) SOB (shortness of breath) Status: Acute (8) Supplemental oxygen dependent Status: Acute (9) UTI (urinary tract infection) Status: Acute Physical Exam Vital Signs Last Vital Signs Documentation Date Time Temp Pulse Resp B/P (MAP) Pulse Ox O2 Delivery O2 Flow Rate FiO2 07/29/17 08:06 36.4 60 18 118/76 (90) 96 4.0 07/29/17 08:00 Room Air Physical Exam Constitutional: Level of Distress: NAD Psychiatric: Mental Status: active & alert Orientation: to place, to person, not oriented to time Head: normocephalic Eyes: Pupils: PERRLA Neck: pertinent finding (Normal JVP. No HJR) Lungs: Respiratory effort: no dyspnea Auscultation: no wheezing, no rales/crackles, no rhonchi, deminished air movement, decreased breath sounds Cardiovascular: Heart Auscultation: RRR, no rubs, II/ TU Abdomen: Bowel Sounds: normal Inspection & Palpation: soft, non-distended, no masses Extremities: no cyanosis, edema (Minimal edema), varicosities Neurologic: Cranial Nerves: grossly intact Assessment and Plan Assessment and Plan Admission with acute on chronic dyspnea Symptoms improved following two doses of IV Bumex History of right heart failure and diastolic dysfunction Severe oxygen dependent COPD Labs today with mild hyponatremia, renal dysfunction. Chronic atrial fibrillation Status post permanent pacemaker implantation in February 2013. Status post AV junction ablation in October 2014 Atrial flutter status post ablation Contraindications to anticoagulation Hypertension. History of hyperkalemia with past use of ACEI therapy as well as ARB. Dyslipidemia - uncontrolled with prior statin intolerance, declining alternative therapies. Paranoia RECOMMENDATIONS: Hold diuretics Check magnesium Interrogate pacemaker Sinker Puller and Psychiatry evaluations pending. Laboratory Results Last 24 Hours Test 07/28/17 11:50 07/28/17 11:53 07/28/17 16:37 07/28/17 20:53 Troponin I < 0.015 ng/ml Bedside Glucose 131 mg/dl 151 mg/dl 137 mg/dl Test 07/29/17 05:56 07/29/17 07:51 White Blood Count 10.24 K/uL Red Blood Count 4.20 M/uL Hemoglobin 13.2 g/dL Hematocrit 38.9 % Mean Corpuscular Volume 92.6 fL Mean Corpuscular Hemoglobin 31.4 pg Mean Corpuscular Hemoglobin Concent 33.9 g/dl Platelet Count 133 K/uL Mean Platelet Volume 10.3 fL Neutrophils (%) (Auto) 71.7 % Lymphocytes (%) (Auto) 13.6 % Monocytes (%) (Auto) 11.5 % Eosinophils (%) (Auto) 2.5 % Basophils (%) (Auto) 0.5 % Neutrophils # (Auto) 7.34 K/uL Lymphocytes # (Auto) 1.39 K/uL Monocytes # (Auto) 1.18 K/uL Eosinophils # (Auto) 0.26 K/uL Basophils # (Auto) 0.05 K/uL RDW Standard Deviation 48.7 fL RDW Coefficient of Variation 14.5 % Immature Granulocyte % (Auto) 0.2 % Immature Granulocyte # (Auto) 0.02 K/uL Sodium Level 134 mmol/L Potassium Level 3.9 mmol/L Chloride Level 98 mmol/L Carbon Dioxide Level 27 mmol/L Anion Gap 9.0 mmol/L Blood Urea Nitrogen 31 mg/dl Creatinine 1.42 mg/dl Est Creatinine Clear Calc Drug Dose 29.2 ml/min Estimated GFR () 38.7 Estimated GFR (Non- 33.4 BUN/Creatinine Ratio 22.1 Random Glucose 124 mg/dl Calcium Level 9.6 mg/dl Bedside Glucose 122 mg/dl
[2017-07-29 11:54] VITALS: BP 96/59; PULSE 64; TEMP 36.4; O2SAT 97
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
--- NOTE | 2017-07-29 15:10 | Progress Note ---
Subjective Date of Service: Jul 29, 2017. Subjective Pt evaluation today including: conversation w/ patient, physical exam, lab review, review of studies, review of inpatient medication list Saw/examined the patient in room 284 She states she feels fine her breathing is stable She tells me she is hearing and seeing things Problem List Medical Problems: (1) Acute exacerbation of CHF (congestive heart failure) Status: Acute (2) Delusions Status: Acute (3) Medical non-compliance Status: Acute (4) Mood disorder Status: Acute (5) Paranoia (psychosis) Status: Acute (6) Rectal bleed Status: Acute (7) SOB (shortness of breath) Status: Acute (8) Supplemental oxygen dependent Status: Acute (9) UTI (urinary tract infection) Status: Acute Review of Systems Constitutional: No fever, No chills Respiratory: No shortness of breath Cardiac: No chest pain, No edema, No palpitations Abdomen: No pain, No nausea, No vomiting, No diarrhea Psychiatric: + depression symptoms, + problem reported (hallucinations) Medications Current Inpatient Medications Medications (Trade) Dose Ordered Sig/Vero Route Start Time Stop Time Status Last Admin Dose Admin Acetaminophen (Tylenol Tab) 650 mg Q4H PRN PO 07/28/17 07:15 08/27/17 07:14 07/28/17 23:37 650 MG Nitroglycerin (Nitrostat Tab) 0.4 mg UD PRN SL 07/28/17 07:15 08/27/17 07:14 Aspirin (Ecotrin Tab) 81 mg Q2D PO 07/30/17 07:15 08/29/17 07:14 Metoprolol Tartrate (Lopressor Tab) 25 mg BID PO 07/28/17 09:30 08/27/17 09:29 07/29/17 07:43 25 MG Risperidone (Risperdal Tab) 0.5 mg HS PO 07/28/17 21:00 08/27/17 20:59 07/28/17 20:21 0.5 MG Miscellaneous Information (Order Awaiting Action) 1 ea QS N/A 07/28/17 16:00 08/27/17 15:59 Tramadol HCl (Ultram Tab) 25 mg Q6H PRN PO 07/28/17 07:15 08/27/17 07:14 07/29/17 04:28 25 MG Prochlorperazine Edisylate 5 mg/ Syringe 5 ml @ 5 mls/min Q6H PRN IV 07/28/17 07:15 08/27/17 07:14 Albuterol/ Ipratropium (Duoneb) 3 ml Q2H PRN INH 07/28/17 07:15 08/27/17 07:14 Tiotropium [place] (Spiriva Handihaler Inhaler) 2 puff QAM INH 07/28/17 09:30 08/27/17 09:29 07/29/17 07:42 2 PUFF Risperidone (Risperdal Tab) 0.25 mg BID PO 07/29/17 21:00 08/28/17 20:59 Escitalopram Oxalate (Lexapro Tab) 10 mg QAM PO 07/30/17 09:00 08/29/17 08:59 Objective Vital Signs Date Time Temp Pulse Resp B/P (MAP) Pulse Ox O2 Delivery O2 Flow Rate FiO2 07/29/17 12:00 Room Air 07/29/17 11:54 36.4 64 18 96/59 (71) 97 4.0 07/29/17 08:06 36.4 60 18 118/76 (90) 96 4.0 07/29/17 08:00 Room Air 07/29/17 04:00 Nasal Cannula 4.0 07/29/17 02:42 36.4 71 19 144/81 (102) 94 Nasal Cannula 4.0 07/28/17 23:56 36.3 64 17 93/54 (67) 96 Nasal Cannula 4.0 07/28/17 23:30 Nasal Cannula 4.0 07/28/17 20:24 60 124/60 (81) 07/28/17 20:13 36.5 65 20 109/69 (82) 94 Room Air 07/28/17 20:00 94 Nasal Cannula 4.0 07/28/17 16:35 62 128/62 (84) 94 Nasal Cannula 4.0 07/28/17 16:00 92 Nasal Cannula 4.0 07/28/17 15:49 145/83 (103) 07/28/17 15:32 36.4 76 18 92 Nasal Cannula 4.0 Physical Exam General Appearance: no apparent distress Respiratory/Chest: no respiratory distress, no accessory muscle use, + decreased breath sounds Cardiovascular: regular rate, rhythm, no edema, no murmur Extremities: normal inspection, no pedal edema Neurologic/Psychiatric: + depressed affect, + pertinent finding (hallucination ; auditory and at times visual as well) Laboratory Results Last 24 Hours Test 07/28/17 16:37 07/28/17 20:53 07/29/17 05:50 07/29/17 05:56 Bedside Glucose 151 mg/dl 137 mg/dl Urine Color YELLOW Urine Appearance CLEAR Urine pH 5.5 Urine Specific [place] 1.007 Urine Protein NEG Urine Glucose (UA) NEG Urine Ketones NEG Urine Occult Blood NEG Urine Nitrite NEG Urine Bilirubin NEG Urine Urobilinogen NEG Urine Leukocyte Esterase NEG White Blood Count 10.24 K/uL Red Blood Count 4.20 M/uL Hemoglobin 13.2 g/dL Hematocrit 38.9 % Mean Corpuscular Volume 92.6 fL Mean Corpuscular Hemoglobin 31.4 pg Mean Corpuscular Hemoglobin Concent 33.9 g/dl Platelet Count 133 K/uL Mean Platelet Volume 10.3 fL Neutrophils (%) (Auto) 71.7 % Lymphocytes (%) (Auto) 13.6 % Monocytes (%) (Auto) 11.5 % Eosinophils (%) (Auto) 2.5 % Basophils (%) (Auto) 0.5 % Neutrophils # (Auto) 7.34 K/uL Lymphocytes # (Auto) 1.39 K/uL Monocytes # (Auto) 1.18 K/uL Eosinophils # (Auto) 0.26 K/uL Basophils # (Auto) 0.05 K/uL RDW Standard Deviation 48.7 fL RDW Coefficient of Variation 14.5 % Immature Granulocyte % (Auto) 0.2 % Immature Granulocyte # (Auto) 0.02 K/uL Sodium Level 134 mmol/L Potassium Level 3.9 mmol/L Chloride Level 98 mmol/L Carbon Dioxide Level 27 mmol/L Anion Gap 9.0 mmol/L Blood Urea Nitrogen 31 mg/dl Creatinine 1.42 mg/dl Est Creatinine Clear Calc Drug Dose 29.2 ml/min Estimated GFR () 38.7 Estimated GFR (Non- 33.4 BUN/Creatinine Ratio 22.1 Random Glucose 124 mg/dl Calcium Level 9.6 mg/dl Magnesium Level 2.1 mg/dl Test 07/29/17 07:51 07/29/17 11:16 Bedside Glucose 122 mg/dl 130 mg/dl Assessment and Plan This is an 86 year old female with a PMH of COPD and chronic respiratory failure on 2L of O2 continuously, paroxysmal atrial fibrillation s/p multiple ablations and s/p pacemaker in situ - not a anticoagulation candidate due to bleeding risk, ulcerative colitis with episodes of rectal bleed, CKD stage 3 - presents with worsening shortness of breath Acute on Chronic Hypoxic Respiratory Failure likely secondary to Pulmonary Hypertension 07/29 appreciate cardiology input will hold diuretics monitor kidney function 07/28 last echo in 2014, noted to have a normal LVEF with elevated pulmonary systolic pressures patient presented with fluid overload; as noted on CXR and BNP testing given IV Bumex with good response she states she is feeling better chronically uses 2L of O2 cardiology consulted echo ordered and pending Acute Kidney Injury hold Bumex monitor kidney function in AM Major Depressive Disorder with Psychotic Features appreciate mental health consultation input plan at this time is to start Lexapro - patient has been depressed since the of her son start on Risperdal as well for psychotic features COPD does not appear to be in COPD exacerbation there is no wheezing on exam, no accessory muscle use, etc. will continue Spiriva and chronic O2 use Paroxysmal A. Fib she is ventricularly paced currently continue [id number] not a candidate for anticoagulation; aspirin 81mg instead DVT ppx SCDs FULL CODE
[2017-07-29 15:23] VITALS: BP 106/62; PULSE 69; TEMP 36.4; O2SAT 96
[2017-07-29 19:39] VITALS: BP 132/77; PULSE 64; TEMP 36.5; O2SAT 98
[2017-07-29] MEDS: RISPERIDONE 0.5 MG TAB PO SCH ×2 (21:05)
[2017-07-29 23:50] VITALS: BP 144/86; PULSE 60; TEMP 36.4; O2SAT 96
[2017-07-30] MEDS ORDERED: NURSING VERBAL MED ORDER ONE (00:15)
[2017-07-30 04:00] VITALS: BP 121/68; PULSE 66; TEMP 36.5; O2SAT 97
[2017-07-30 06:30] LABS: CALCIUM 8.9 mg/dl (8.5-10.1); CREATININE 1.3 mg/dl (0.60-1.20); POTASSIUM 4.4 mmol/L (3.5-5.1)
[2017-07-30] MEDS ORDERED: ASPIRIN 81 MG ECTAB PO SCH (07:15)
[2017-07-30] MEDS: ASPIRIN 81 MG ECTAB PO SCH (07:35)
[2017-07-30] MEDS: RISPERIDONE 0.5 MG TAB PO SCH ×3 (07:35→20:10)
[2017-07-30] MEDS: TIOTROPIUM BROMIDE 5 PUFF/90 MCG INH INH SCH (07:35)
[2017-07-30] MEDS: METOPROLOL TARTRATE 50 MG TAB PO SCH ×2 (07:36→20:10)
[2017-07-30 07:48] VITALS: BP 120/66; PULSE 60; TEMP 36.4; O2SAT 97
[2017-07-30] MEDS: ESCITALOPRAM OXALATE 10 MG TAB PO SCH (08:04)
--- NOTE | 2017-07-30 10:20 | Cardiology Follow-Up ---
Subjective General Date of Service: Jul 30, 2017. Chief Complaint: SOB Pt evaluation today including: conversation w/ patient, physical exam, chart review, lab review, review of studies, review of inpatient medication list History of Present Illness Patient seen and examined. No complaints other than hearing music. Denies chest pain, palpitations, current cough, new or worsening dyspnea, or peripheral edema. No lower extremity cramps last night. Data: July 28, 2017 TTE Interpretation Summary ([facility], Dr. Bellamy): There is moderate concentric left ventricular hypertrophy. Ejection Fraction = 60-65%. The right ventricle is moderately dilated. The right ventricular systolic function is mild to moderately reduced. The left atrium is severely dilated. The right atrium is severely dilated. There is moderate to severe tricuspid regurgitation. There is mild to moderate mitral regurgitation. Aortic valve sclerosis moderate, without significant aortic valvular stenosis. Mild to moderate aortic regurgitation. The pulmonary artery systolic pressure is estimated to be 68 mmHg Telemetry: Atrial fibrillation in the 60's. Ventricular paced rhythm. Pacemaker interrogation performed by a [employer] Scientist (Juan Miguel) on 2017; report not currently available for review. Allergies Coded Allergies: Sulfa Antibiotics (Verified Allergy, Intermediate, ?, 05/09/17) Mesalamine (Verified Allergy, Mild, 05/09/17) BEE STING (Verified Allergy, Unknown, 05/09/17) Furosemide (Verified Allergy, Unknown, 05/09/17) Propofol (Verified Adverse Reaction, Severe, AFFECTED HER HEART, 05/09/17) SHE HAS A PACEMAKER Warfarin (Verified Adverse Reaction, Severe, ANTICOAG CONTRAIND-COLITIS/ GI BLEED, 05/09/17) Social History Smoking Status: Former Smoker Hx Tobacco Use In Past Year?: No Hx Alcohol Use - Type And Amou: No Hx Substance Use - Type And Am: No Problem List Medical Problems: (1) Acute exacerbation of CHF (congestive heart failure) Status: Acute (2) Delusions Status: Acute (3) Medical non-compliance Status: Acute (4) Mood disorder Status: Acute (5) Paranoia (psychosis) Status: Acute (6) Rectal bleed Status: Acute (7) SOB (shortness of breath) Status: Acute (8) Supplemental oxygen dependent Status: Acute (9) UTI (urinary tract infection) Status: Acute Physical Exam Vital Signs Last Vital Signs Documentation Date Time Temp Pulse Resp B/P (MAP) Pulse Ox O2 Delivery O2 Flow Rate FiO2 07/30/17 08:00 Room Air 07/30/17 07:48 36.4 60 18 120/66 (84) 97 2.0 Physical Exam Constitutional: Level of Distress: NAD Psychiatric: Mental Status: active & alert Orientation: to place, to person, not oriented to time Head: normocephalic Eyes: Pupils: PERRLA Neck: pertinent finding Lungs: Respiratory effort: no dyspnea Auscultation: no wheezing, no rales/crackles, no rhonchi, deminished air movement, decreased breath sounds Cardiovascular: Heart Auscultation: RRR, no rubs, II/ TU Abdomen: Bowel Sounds: normal Inspection & Palpation: soft, non-distended, no masses Extremities: no cyanosis, edema, varicosities Neurologic: Cranial Nerves: grossly intact Assessment and Plan Assessment and Plan Admission with acute on chronic dyspnea Symptoms improved following two doses of IV Bumex with labs thereafter revealing acute on chronic renal dysfunction. History of right heart failure, diastolic dysfunction, severe oxygen dependent COPD. Atrial flutter status post ablation Chronic atrial fibrillation Status post permanent pacemaker implantation in February 2013. Status post AV junction ablation in October 2014 Contraindications to anticoagulation Hypertension. History of hyperkalemia with past use of ACEI therapy as well as ARB. Dyslipidemia - uncontrolled with prior statin intolerance, declining alternative therapies. Paranoia RECOMMENDATIONS: Hold diuretics, resuming Bumex 0.5 mg as needed post discharge. Continue metoprolol and ASA. Increase activity as tolerated. Outpatient cardiology follow-up. CARDIOLOGY ATTENDING ADDENDUM: The patient was seen and personally examined. Agree with Peng Ceja PA-C's findings and plans as documented above. The patient could be discharged home per the medical service and we will follow her as an outpatient. Laboratory Results Last 24 Hours Test 07/29/17 11:16 07/29/17 16:32 07/29/17 20:38 07/30/17 05:40 Bedside Glucose 130 mg/dl 122 mg/dl 154 mg/dl Sodium Level 136 mmol/L Potassium Level 4.4 mmol/L Chloride Level 101 mmol/L Carbon Dioxide Level 31 mmol/L Anion Gap 3.0 mmol/L Blood Urea Nitrogen 32 mg/dl Creatinine 1.30 mg/dl Est Creatinine Clear Calc Drug Dose 30.6 ml/min Estimated GFR () 43.0 Estimated GFR (Non- 37.1 BUN/Creatinine Ratio 24.3 Random Glucose 126 mg/dl Calcium Level 8.9 mg/dl Test 07/30/17 07:18 Bedside Glucose 119 mg/dl
--- NOTE | 2017-07-30 12:48 | Progress Note ---
Medicine Progress Note Date & Time of Visit: Jul 30, 2017 at 12:45. Subjective seen resting in bed, comfortable states she feels improved compared to yesterday denies dyspnea, cough, chest pain, palpitations, dizziness still hears "music" playing, intermittently denies other symptom Objective Last 8 Hrs Date Time Temp Pulse Resp B/P (MAP) Pulse Ox O2 Delivery O2 Flow Rate FiO2 07/30/17 08:00 Room Air 07/30/17 07:48 36.4 60 18 120/66 (84) 97 2.0 Physical Exam: General- oriented x 3, not in distress, speaks in sentences with no effort Head- atraumatic Eyes- PERRL, EOMI, anicteric ENT- oropharynx clear Neck- supple, no JVD, no adenopathy, no thyromegaly Lungs- clear to auscultation b/l Heart- regular rhythm; (+) RPSB holosystolic murmur, normal rate Abdomen- normal bowel sounds, soft, nontender Extremities- no pretibial edema, no calf tenderness; peripheral pulses intact Neuro- alert, oriented x 3; no gross focal deficits Skin- warm & dry Laboratory Results: Last 24 Hours Test 07/29/17 16:32 07/29/17 20:38 07/30/17 05:40 07/30/17 07:18 Bedside Glucose 122 mg/dl 154 mg/dl 119 mg/dl Sodium Level 136 mmol/L Potassium Level 4.4 mmol/L Chloride Level 101 mmol/L Carbon Dioxide Level 31 mmol/L Anion Gap 3.0 mmol/L Blood Urea Nitrogen 32 mg/dl Creatinine 1.30 mg/dl Est Creatinine Clear Calc Drug Dose 30.6 ml/min Estimated GFR () 43.0 Estimated GFR (Non- 37.1 BUN/Creatinine Ratio 24.3 Random Glucose 126 mg/dl Calcium Level 8.9 mg/dl Test 07/30/17 11:41 Bedside Glucose 131 mg/dl Assessment & Plan This is an 86 year old female with a PMH of COPD and chronic respiratory failure on 2L of O2 continuously, paroxysmal atrial fibrillation s/p multiple ablations and s/p pacemaker in situ - not a anticoagulation candidate due to bleeding risk, ulcerative colitis with episodes of rectal bleed, CKD stage 3 - presents with worsening shortness of breath Acute on Chronic Hypoxic Respiratory Failure likely secondary to Acute CHF secondary to Valvular Heart Disease chronically uses 2L of O2 cardiology consulted echo: -- Conclusions -- There is moderate concentric left ventricular hypertrophy. Ejection Fraction = 60-65%. The right ventricle is moderately dilated. The right ventricular systolic function is mild to moderately reduced. The left atrium is severely dilated. The right atrium is severely dilated. There is moderate to severe tricuspid regurgitation. There is mild to moderate mitral regurgitation. Aortic valve sclerosis moderate, without significant aortic valvular stenosis. Mild to moderate aortic regurgitation. The pulmonary artery systolic pressure is estimated to be 68 mmHg. given Bumex IV, good response crea increased though, now improved to 1.3 Cardiology on board Acute Kidney Injury hold Bumex improving Major Depressive Disorder with Psychotic Features Psych consulted Lexapro and Risperidone BID started COPD stable continue Spiriva and chronic O2 use Paroxysmal A. Fib she is ventricularly paced currently continue b-jacinto not a candidate for anticoagulation; aspirin 81mg instead DVT ppx SCDs FULL CODE Disposition pending PT/OT in progress Psych eval also in progress patient may need Jonel/SNF Current Inpatient Medications: Current Inpatient Medications Medications (Trade) Dose Ordered Sig/Vero Route Start Time Stop Time Status Last Admin Dose Admin Acetaminophen (Tylenol Tab) 650 mg Q4H PRN PO 07/28/17 07:15 08/27/17 07:14 07/28/17 23:37 650 MG Nitroglycerin (Nitrostat Tab) 0.4 mg UD PRN SL 07/28/17 07:15 08/27/17 07:14 Metoprolol Tartrate (Lopressor Tab) 25 mg BID PO 07/28/17 09:30 08/27/17 09:29 07/30/17 07:36 25 MG Risperidone (Risperdal Tab) 0.5 mg HS PO 07/28/17 21:00 08/27/17 20:59 07/29/17 21:05 0.5 MG Miscellaneous Information (Order Awaiting Action) 1 ea QS N/A 07/28/17 16:00 08/27/17 15:59 Tramadol HCl (Ultram Tab) 25 mg Q6H PRN PO 07/28/17 07:15 08/27/17 07:14 07/29/17 21:12 25 MG Prochlorperazine Edisylate 5 mg/ Syringe 5 ml @ 5 mls/min Q6H PRN IV 07/28/17 07:15 08/27/17 07:14 Albuterol/ Ipratropium (Duoneb) 3 ml Q2H PRN INH 07/28/17 07:15 08/27/17 07:14 Tiotropium [place] (Spiriva Handihaler Inhaler) 2 puff QAM INH 07/28/17 09:30 08/27/17 09:29 07/30/17 07:35 2 PUFF Risperidone (Risperdal Tab) 0.25 mg BID PO 07/29/17 21:00 08/28/17 20:59 07/30/17 07:35 0.25 MG Escitalopram Oxalate (Lexapro Tab) 10 mg QAM PO 07/30/17 09:00 08/29/17 08:59 07/30/17 08:04 10 MG Aspirin (Ecotrin Tab) 81 mg Q2D PO 07/30/17 09:00 08/29/17 08:59 07/30/17 07:35 81 MG
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
[2017-07-30] MEDS: TRAMADOL HCL 50 MG TAB PO PRN (15:44)
[2017-07-30 16:11] VITALS: BP 130/76; PULSE 58; TEMP 36.4; O2SAT 94
[2017-07-30] MEDS ORDERED: SODIUM CHLORIDE 0.65% NA SOLN 45 ML (OCEAN) PRN (17:30)
[2017-07-30 19:53] VITALS: BP 120/56; PULSE 63; TEMP 36.3; O2SAT 92
[2017-07-30 23:45] VITALS: BP 116/67; PULSE 60; TEMP 36.3; O2SAT 94
[2017-07-31 04:28] VITALS: BP 134/74; PULSE 68; TEMP 36.6; O2SAT 95
[2017-07-31 06:57] LABS: CREATININE 1.02 mg/dl (0.60-1.20); POTASSIUM 4.4 mmol/L (3.5-5.1)
[2017-07-31 07:31] VITALS: BP 131/70; PULSE 63; TEMP 36.7; O2SAT 94
[2017-07-31] MEDS: RISPERIDONE 0.5 MG TAB PO SCH ×2 (07:34→20:44)
[2017-07-31] MEDS: TIOTROPIUM BROMIDE 5 PUFF/90 MCG INH INH SCH (07:35)
[2017-07-31] MEDS: ESCITALOPRAM OXALATE 10 MG TAB PO SCH (07:35)
[2017-07-31] MEDS: METOPROLOL TARTRATE 50 MG TAB PO SCH ×2 (07:35→20:44)
[2017-07-31 10:57] VITALS: BP 96/65; PULSE 60; TEMP 36.5; O2SAT 95
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
[2017-07-31 14:50] VITALS: BP 133/77; PULSE 60; TEMP 36.4; O2SAT 94
--- NOTE | 2017-07-31 17:54 | Progress Note ---
Medicine Progress Note Date & Time of Visit: Jul 31, 2017 at 17:49. Subjective seen resting in bed, comfortable states she feels improved today no dyspnea, cough, chest pain hears songs/hymns occasionally no other symptoms Objective Last 8 Hrs Date Time Temp Pulse Resp B/P (MAP) Pulse Ox O2 Delivery O2 Flow Rate FiO2 07/31/17 16:00 Nasal Cannula 2.0 07/31/17 14:50 36.4 60 18 133/77 (95) 94 Nasal Cannula 2.0 07/31/17 12:00 Room Air 07/31/17 10:57 36.5 60 18 96/65 (75) 95 Nasal Cannula 2.0 Physical Exam: General- oriented x 3, not in distress, speaks in sentences with no effort Eyes- anicteric Neck- supple, no JVD Lungs- clear breath sounds bilaterally Heart- regular rhythm; (+) RPSB holosystolic murmur, normal rate Abdomen- normal bowel sounds, soft, nontender Extremities- no pretibial edema, no calf tenderness; peripheral pulses intact Neuro- alert, oriented x 3; no gross focal deficits Skin- warm & dry Laboratory Results: Last 24 Hours Test 07/30/17 20:39 07/31/17 05:44 07/31/17 07:38 07/31/17 11:26 Bedside Glucose 121 mg/dl 127 mg/dl 202 mg/dl Sodium Level 134 mmol/L Potassium Level 4.4 mmol/L Chloride Level 102 mmol/L Carbon Dioxide Level 26 mmol/L Anion Gap 6.0 mmol/L Blood Urea Nitrogen 35 mg/dl Creatinine 1.02 mg/dl Est Creatinine Clear Calc Drug Dose 39.0 ml/min Estimated GFR () 57.7 Estimated GFR (Non- 49.8 BUN/Creatinine Ratio 34.4 Random Glucose 134 mg/dl Calcium Level 9.0 mg/dl Assessment & Plan This is an 86 year old female with a PMH of COPD and chronic respiratory failure on 2L of O2 continuously, paroxysmal atrial fibrillation s/p multiple ablations and s/p pacemaker in situ - not a anticoagulation candidate due to bleeding risk, ulcerative colitis with episodes of rectal bleed, CKD stage 3 - presents with worsening shortness of breath Acute on Chronic Hypoxic Respiratory Failure likely secondary to Acute CHF secondary to Valvular Heart Disease chronically uses 2L of O2 cardiology consulted echo: -- Conclusions -- There is moderate concentric left ventricular hypertrophy. Ejection Fraction = 60-65%. The right ventricle is moderately dilated. The right ventricular systolic function is mild to moderately reduced. The left atrium is severely dilated. The right atrium is severely dilated. There is moderate to severe tricuspid regurgitation. There is mild to moderate mitral regurgitation. Aortic valve sclerosis moderate, without significant aortic valvular stenosis. Mild to moderate aortic regurgitation. The pulmonary artery systolic pressure is estimated to be 68 mmHg. given Bumex IV, good response crea increased though, now back to baseline at 1.0 Cardiology on board- now euvolemic, recommend PRN Bumex Acute Kidney Injury resolved Major Depressive Disorder with Psychotic Features Psych consulted Lexapro and Risperidone BID started Risperidone further increased COPD stable continue Spiriva and chronic O2 use Paroxysmal A. Fib she is ventricularly paced currently continue b-jacinto not a candidate for anticoagulation; aspirin 81mg instead DVT ppx SCDs FULL CODE Disposition pending PT/OT recommends Rehab Psych eval also in progress, recommend to transition patient in a supervised facility Current Inpatient Medications: Current Inpatient Medications Medications (Trade) Dose Ordered Sig/Vero Route Start Time Stop Time Status Last Admin Dose Admin Acetaminophen (Tylenol Tab) 650 mg Q4H PRN PO 07/28/17 07:15 08/27/17 07:14 07/28/17 23:37 650 MG Nitroglycerin (Nitrostat Tab) 0.4 mg UD PRN SL 07/28/17 07:15 08/27/17 07:14 Metoprolol Tartrate (Lopressor Tab) 25 mg BID PO 07/28/17 09:30 08/27/17 09:29 07/31/17 07:35 25 MG Risperidone (Risperdal Tab) 0.5 mg HS PO 07/28/17 21:00 08/27/17 20:59 07/30/17 20:10 0.5 MG Miscellaneous Information (Order Awaiting Action) 1 ea QS N/A 07/28/17 16:00 08/27/17 15:59 Tramadol HCl (Ultram Tab) 25 mg Q6H PRN PO 07/28/17 07:15 08/27/17 07:14 07/30/17 15:44 25 MG Prochlorperazine Edisylate 5 mg/ Syringe 5 ml @ 5 mls/min Q6H PRN IV 07/28/17 07:15 08/27/17 07:14 Albuterol/ Ipratropium (Duoneb) 3 ml Q2H PRN INH 07/28/17 07:15 08/27/17 07:14 Tiotropium [place] (Spiriva Handihaler Inhaler) 2 puff QAM INH 07/28/17 09:30 08/27/17 09:29 07/31/17 07:35 2 PUFF Escitalopram Oxalate (Lexapro Tab) 10 mg QAM PO 07/30/17 09:00 08/29/17 08:59 07/31/17 07:35 10 MG Aspirin (Ecotrin Tab) 81 mg Q2D PO 07/30/17 09:00 08/29/17 08:59 07/30/17 07:35 81 MG Sodium Chloride ([place] Nasal [place]) 1 sprays PRN PRN NA 07/30/17 17:30 08/29/17 17:29 Risperidone (Risperdal Tab) 0.5 mg BID@0900,1400 PO 08/01/17 09:00 08/31/17 08:59
[2017-07-31 19:24] VITALS: BP 127/72; PULSE 62; TEMP 36.8; O2SAT 90
[2017-07-31] MEDS: TRAMADOL HCL 50 MG TAB PO PRN (20:45)
[2017-07-31 23:07] VITALS: BP 126/76; PULSE 60; TEMP 36.3; O2SAT 95
[2017-08-01 04:46] VITALS: BP 121/71; PULSE 69; TEMP 36.4; O2SAT 97
[2017-08-01 07:26] VITALS: BP 166/75; PULSE 76; TEMP 36.3; O2SAT 92
[2017-08-01 07:28] LABS: BASO % 0.7 %; BASO ABS # 0.04 K/uL (0-0.2); EOS % 2.8 %; EOS ABS # 0.16 K/uL (0-0.5); HEMATOCRIT 39.5 % (37-47); HEMOGLOBIN 13.4 g/dL (12.0-16.0); IG# 0.01 K/uL (0.00-0.02); LYMPH % 19.9 %; LYMPH ABS # 1.12 K/uL (1.2-3.4); MEAN CORPUSCULAR HEMOGLOBIN 31.9 pg (25-34); MEAN CORPUSCULAR HGB CONC 33.9 g/dl (32-36); MEAN PLATELET VOLUME 10.7 fL (7.4-10.4); MONO % 15.8 %; MONO ABS # 0.89 K/uL (0.11-0.59); NEUT % 60.6 %; NEUT ABS # 3.41 K/uL (1.4-6.5); PLATELET COUNT 124 K/uL (130-400); RED CELL DISTRIBUTION WIDTH CV 14.3 % (11.5-14.5); RED CELL DISTRIBUTION WIDTH SD 49.4 fL (36.4-46.3); WHITE BLOOD COUNT 5.63 K/uL (4.8-10.8)
[2017-08-01 07:34] LABS: CALCIUM 9.2 mg/dl (8.5-10.1); CREATININE 1.08 mg/dl (0.60-1.20); POTASSIUM 4.6 mmol/L (3.5-5.1)
[2017-08-01] MEDS: ESCITALOPRAM OXALATE 10 MG TAB PO SCH (08:01)
[2017-08-01] MEDS: ASPIRIN 81 MG ECTAB PO SCH (08:02)
[2017-08-01] MEDS: TRAMADOL HCL 50 MG TAB PO PRN ×2 (08:02→21:09)
[2017-08-01] MEDS: RISPERIDONE 0.5 MG TAB PO SCH ×3 (08:02→21:05)
[2017-08-01] MEDS: METOPROLOL TARTRATE 50 MG TAB PO SCH ×2 (08:02→21:04)
[2017-08-01] MEDS: TIOTROPIUM BROMIDE 5 PUFF/90 MCG INH INH SCH (08:03)
[2017-08-01 11:22] VITALS: BP 152/79; PULSE 67; O2SAT 93
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
[2017-08-01 15:44] VITALS: BP 146/86; PULSE 64; TEMP 36.6; O2SAT 94
[2017-08-01] MEDS ORDERED: HYDROCORTISONE HC 2.5% CRM 30GM TUBE EXT PRN (16:45)
[2017-08-01 19:34] VITALS: BP 114/65; PULSE 66; TEMP 36.5; O2SAT 96
--- NOTE | 2017-08-01 21:05 | Progress Note ---
Medicine Progress Note Date & Time of Visit: Aug 01, 2017 at 21:02. Subjective seen resting in bed, comfortable no dyspnea, chest pain oriented x 3, pleasant no other symptoms Objective Last 8 Hrs Date Time Temp Pulse Resp B/P (MAP) Pulse Ox O2 Delivery O2 Flow Rate FiO2 08/01/17 20:00 Nasal Cannula 2.0 08/01/17 19:34 36.5 66 18 114/65 (81) 96 Nasal Cannula 2.0 08/01/17 16:00 Nasal Cannula 2.0 08/01/17 15:44 36.6 64 17 146/86 (106) 94 Nasal Cannula 2.0 Physical Exam: General- oriented x 3, not in distress, speaks in sentences with no effort Eyes- anicteric Neck- no JVD Lungs- clear breath sounds bilaterally Heart- regular rhythm; (+) RPSB holosystolic murmur, normal rate Abdomen- normal bowel sounds, soft, nontender Extremities- no pretibial edema, no calf tenderness Neuro- alert, oriented x 3; no gross focal deficits Skin- warm & dry Laboratory Results: Last 24 Hours Test 08/01/17 06:53 08/01/17 07:54 08/01/17 11:37 White Blood Count 5.63 K/uL Red Blood Count 4.20 M/uL Hemoglobin 13.4 g/dL Hematocrit 39.5 % Mean Corpuscular Volume 94.0 fL Mean Corpuscular Hemoglobin 31.9 pg Mean Corpuscular Hemoglobin Concent 33.9 g/dl Platelet Count 124 K/uL Mean Platelet Volume 10.7 fL Neutrophils (%) (Auto) 60.6 % Lymphocytes (%) (Auto) 19.9 % Monocytes (%) (Auto) 15.8 % Eosinophils (%) (Auto) 2.8 % Basophils (%) (Auto) 0.7 % Neutrophils # (Auto) 3.41 K/uL Lymphocytes # (Auto) 1.12 K/uL Monocytes # (Auto) 0.89 K/uL Eosinophils # (Auto) 0.16 K/uL Basophils # (Auto) 0.04 K/uL RDW Standard Deviation 49.4 fL RDW Coefficient of Variation 14.3 % Immature Granulocyte % (Auto) 0.2 % Immature Granulocyte # (Auto) 0.01 K/uL Sodium Level 136 mmol/L Potassium Level 4.6 mmol/L Chloride Level 103 mmol/L Carbon Dioxide Level 31 mmol/L Anion Gap 2.0 mmol/L Blood Urea Nitrogen 30 mg/dl Creatinine 1.08 mg/dl Est Creatinine Clear Calc Drug Dose 36.8 ml/min Estimated GFR () 53.8 Estimated GFR (Non- 46.4 BUN/Creatinine Ratio 28.1 Random Glucose 131 mg/dl Calcium Level 9.2 mg/dl Bedside Glucose 131 mg/dl 140 mg/dl Assessment & Plan This is an 86 year old female with a PMH of COPD and chronic respiratory failure on 2L of O2 continuously, paroxysmal atrial fibrillation s/p multiple ablations and s/p pacemaker in situ - not a anticoagulation candidate due to bleeding risk, ulcerative colitis with episodes of rectal bleed, CKD stage 3 - presents with worsening shortness of breath Acute on Chronic Hypoxic Respiratory Failure likely secondary to Acute CHF secondary to Valvular Heart Disease chronically uses 2L of O2 cardiology consulted echo: -- Conclusions -- There is moderate concentric left ventricular hypertrophy. Ejection Fraction = 60-65%. The right ventricle is moderately dilated. The right ventricular systolic function is mild to moderately reduced. The left atrium is severely dilated. The right atrium is severely dilated. There is moderate to severe tricuspid regurgitation. There is mild to moderate mitral regurgitation. Aortic valve sclerosis moderate, without significant aortic valvular stenosis. Mild to moderate aortic regurgitation. The pulmonary artery systolic pressure is estimated to be 68 mmHg. given Bumex IV, good response crea increased though, now back to baseline Cardiology on board- now euvolemic, recommend PRN Bumex remains euvolemic Acute Kidney Injury resolved Major Depressive Disorder with Psychotic Features Psych consulted Lexapro and Risperidone BID started Risperidone further increased monitor closely outpatient ff up with Psych Provider COPD stable continue Spiriva and chronic O2 use Paroxysmal A. Fib she is ventricularly paced currently continue b-jacinto not a candidate for anticoagulation; aspirin 81mg instead DVT ppx SCDs FULL CODE Disposition pending PT/OT recommends d/c home with home health Psych cleared patient to be d/c home per discussion with Psych Liason anticipate d/c home tomorrow when transportation services are ready Current Inpatient Medications: Current Inpatient Medications Medications (Trade) Dose Ordered Sig/Vero Route Start Time Stop Time Status Last Admin Dose Admin Acetaminophen (Tylenol Tab) 650 mg Q4H PRN PO 07/28/17 07:15 08/27/17 07:14 07/28/17 23:37 650 MG Nitroglycerin (Nitrostat Tab) 0.4 mg UD PRN SL 07/28/17 07:15 08/27/17 07:14 Metoprolol Tartrate (Lopressor Tab) 25 mg BID PO 07/28/17 09:30 08/27/17 09:29 08/01/17 08:02 25 MG Risperidone (Risperdal Tab) 0.5 mg HS PO 07/28/17 21:00 08/27/17 20:59 07/31/17 20:44 0.5 MG Miscellaneous Information (Order Awaiting Action) 1 ea QS N/A 07/28/17 16:00 08/27/17 15:59 Tramadol HCl (Ultram Tab) 25 mg Q6H PRN PO 07/28/17 07:15 08/27/17 07:14 08/01/17 08:02 25 MG Prochlorperazine Edisylate 5 mg/ Syringe 5 ml @ 5 mls/min Q6H PRN IV 07/28/17 07:15 08/27/17 07:14 Albuterol/ Ipratropium (Duoneb) 3 ml Q2H PRN INH 07/28/17 07:15 08/27/17 07:14 Tiotropium [place] (Spiriva Handihaler Inhaler) 2 puff QAM INH 07/28/17 09:30 08/27/17 09:29 08/01/17 08:03 2 PUFF Escitalopram Oxalate (Lexapro Tab) 10 mg QAM PO 07/30/17 09:00 08/29/17 08:59 08/01/17 08:01 10 MG Aspirin (Ecotrin Tab) 81 mg Q2D PO 07/30/17 09:00 08/29/17 08:59 08/01/17 08:02 81 MG Sodium Chloride ([place] Nasal Penelope) 1 sprays PRN PRN NA 07/30/17 17:30 08/29/17 17:29 Risperidone (Risperdal Tab) 0.5 mg BID@0900,1400 PO 08/01/17 09:00 08/31/17 08:59 08/01/17 13:33 0.5 MG Hydrocortisone (Proctozone Hc 2.5% Crm) 1 appln DAILY PRN EXT 08/01/17 16:45 08/31/17 16:44
[2017-08-01 23:19] VITALS: BP 126/67; PULSE 60; TEMP 36.4; O2SAT 97
[2017-08-02] VITALS (7 sets, daily range): BP systolic 112–143; BP diastolic 60–75; PULSE 59–62; TEMP 36.4–36.8; O2SAT 94–97
[2017-08-02 06:40] LABS: CREATININE 1.02 mg/dl (0.60-1.20); POTASSIUM 4.9 mmol/L (3.5-5.1)
[2017-08-02] MEDS: ESCITALOPRAM OXALATE 10 MG TAB PO SCH (08:26)
[2017-08-02] MEDS: TIOTROPIUM BROMIDE 5 PUFF/90 MCG INH INH SCH (08:26)
[2017-08-02] MEDS: RISPERIDONE 0.5 MG TAB PO SCH ×3 (08:26→20:40)
[2017-08-02] MEDS: METOPROLOL TARTRATE 50 MG TAB PO SCH ×2 (08:26→20:40)
[2017-08-03 04:13] VITALS: BP 157/82; PULSE 65; TEMP 36.3; O2SAT 90
[2017-08-03 07:13] VITALS: BP 126/83; PULSE 59; TEMP 36.5; O2SAT 94
[2017-08-03 07:23] LABS: CALCIUM 9.4 mg/dl (8.5-10.1); CREATININE 0.9 mg/dl (0.60-1.20); POTASSIUM 4.5 mmol/L (3.5-5.1)
[2017-08-03] MEDS: TIOTROPIUM BROMIDE 5 PUFF/90 MCG INH INH SCH (08:52)
[2017-08-03] MEDS: ASPIRIN 81 MG ECTAB PO SCH (08:52)
[2017-08-03] MEDS: ESCITALOPRAM OXALATE 10 MG TAB PO SCH (08:52)
[2017-08-03] MEDS: METOPROLOL TARTRATE 50 MG TAB PO SCH ×2 (08:52→21:25)
[2017-08-03] MEDS: RISPERIDONE 0.5 MG TAB PO SCH ×3 (08:52→21:22)
[2017-08-03 11:25] VITALS: BP 119/76; PULSE 60; TEMP 36.5; O2SAT 94
[2017-08-03 15:11] VITALS: BP 137/84; PULSE 59; TEMP 36.3; O2SAT 96
--- NOTE | 2017-08-03 17:04 | Progress Note ---
Medicine Progress Note Date & Time of Visit: Aug 02, 2017 at 20:41. Subjective seen resting in bed, comfortable states she feels fine overall no dyspnea, chest pain no groin pain no other symptoms Objective Last 8 Hrs Date Time Temp Pulse Resp B/P (MAP) Pulse Ox O2 Delivery O2 Flow Rate FiO2 08/02/17 19:54 Nasal Cannula 2.0 08/02/17 19:32 36.8 62 16 116/63 (80) 94 Nasal Cannula 2.0 08/02/17 16:00 Nasal Cannula 2.0 08/02/17 14:53 36.4 60 18 143/66 (91) 94 Nasal Cannula 2.0 Physical Exam: General- oriented x 3, not in distress, speaks in sentences with no effort Eyes- anicteric Neck- no JVD Lungs- clear BS Bilaterally Heart- regular rhythm; (+) RPSB holosystolic murmur, normal rate Abdomen- normal bowel sounds, soft, nontender Extremities- no pretibial edema, no calf tenderness Neuro- alert, oriented x 3; no gross focal deficits Skin- warm & dry Laboratory Results: Last 24 Hours Test 08/01/17 20:45 08/02/17 05:40 08/02/17 07:27 Bedside Glucose 130 mg/dl 122 mg/dl Sodium Level 134 mmol/L Potassium Level 4.9 mmol/L Chloride Level 102 mmol/L Carbon Dioxide Level 28 mmol/L Anion Gap 4.0 mmol/L Blood Urea Nitrogen 29 mg/dl Creatinine 1.02 mg/dl Est Creatinine Clear Calc Drug Dose 39.0 ml/min Estimated GFR () 57.7 Estimated GFR (Non- 49.8 BUN/Creatinine Ratio 28.7 Random Glucose 129 mg/dl Calcium Level 9.0 mg/dl Assessment & Plan This is an 86 year old female with a PMH of COPD and chronic respiratory failure on 2L of O2 continuously, paroxysmal atrial fibrillation s/p multiple ablations and s/p pacemaker in situ - not a anticoagulation candidate due to bleeding risk, ulcerative colitis with episodes of rectal bleed, CKD stage 3 - presents with worsening shortness of breath Acute on Chronic Hypoxic Respiratory Failure likely secondary to Acute CHF secondary to Valvular Heart Disease chronically uses 2L of O2 cardiology consulted echo: -- Conclusions -- There is moderate concentric left ventricular hypertrophy. Ejection Fraction = 60-65%. The right ventricle is moderately dilated. The right ventricular systolic function is mild to moderately reduced. The left atrium is severely dilated. The right atrium is severely dilated. There is moderate to severe tricuspid regurgitation. There is mild to moderate mitral regurgitation. Aortic valve sclerosis moderate, without significant aortic valvular stenosis. Mild to moderate aortic regurgitation. The pulmonary artery systolic pressure is estimated to be 68 mmHg. given Bumex IV, good response Cardiology on board- now euvolemic, recommend PRN Bumex remains euvolemic Acute Kidney Injury resolved Major Depressive Disorder with Psychotic Features Psych consulted Lexapro and Risperidone BID started Risperidone further increased improving outpatient ff up with Psych Provider COPD stable continue Spiriva and chronic O2 use Paroxysmal A. Fib she is ventricularly paced currently continue b-jacinto not a candidate for anticoagulation; aspirin 81mg instead DVT ppx SCDs FULL CODE Disposition pending PT/OT recommends d/c to rehab/snf Psych cleared patient to be d/c transition to SNF when accepted Current Inpatient Medications: Current Inpatient Medications Medications (Trade) Dose Ordered Sig/Vero Route Start Time Stop Time Status Last Admin Dose Admin Acetaminophen (Tylenol Tab) 650 mg Q4H PRN PO 07/28/17 07:15 08/27/17 07:14 07/28/17 23:37 650 MG Nitroglycerin (Nitrostat Tab) 0.4 mg UD PRN SL 07/28/17 07:15 08/27/17 07:14 Metoprolol Tartrate (Lopressor Tab) 25 mg BID PO 07/28/17 09:30 08/27/17 09:29 08/02/17 08:26 25 MG Risperidone (Risperdal Tab) 0.5 mg HS PO 07/28/17 21:00 08/27/17 20:59 08/01/17 21:05 0.5 MG Miscellaneous Information (Order Awaiting Action) 1 ea QS N/A 07/28/17 16:00 08/27/17 15:59 Tramadol HCl (Ultram Tab) 25 mg Q6H PRN PO 07/28/17 07:15 08/27/17 07:14 08/01/17 21:09 25 MG Prochlorperazine Edisylate 5 mg/ Syringe 5 ml @ 5 mls/min Q6H PRN IV 07/28/17 07:15 08/27/17 07:14 Albuterol/ Ipratropium (Duoneb) ml Q2H PRN INH 07/28/17 07:15 08/27/17 07:14 Tiotropium [place] (Spiriva Handihaler Inhaler) 2 puff QAM INH 07/28/17 09:30 08/27/17 09:29 08/02/17 08:26 2 PUFF Escitalopram Oxalate (Lexapro Tab) 10 mg QAM PO 07/30/17 09:00 08/29/17 08:59 08/02/17 08:26 10 MG Aspirin (Ecotrin Tab) 81 mg Q2D PO 07/30/17 09:00 08/29/17 08:59 08/01/17 08:02 81 MG Sodium Chloride ([place] Nasal [place]) 1 sprays PRN PRN NA 07/30/17 17:30 08/29/17 17:29 Risperidone (Risperdal Tab) 0.5 mg BID@0900,1400 PO 08/01/17 09:00 08/31/17 08:59 08/02/17 14:00 0.5 MG Hydrocortisone (Proctozone Hc 2.5% Crm) 1 appln DAILY PRN EXT 08/01/17 16:45 08/31/17 16:44 08/01/17 21:03 1 APPLN
[2017-08-03 19:18] VITALS: BP 129/64; PULSE 60; TEMP 36.5; O2SAT 95
[2017-08-03 23:23] VITALS: BP 103/67; PULSE 65; TEMP 37; O2SAT 93
[2017-08-04] VITALS (7 sets, daily range): BP systolic 113–147; BP diastolic 69–84; PULSE 60–63; TEMP 36.3–36.6; O2SAT 93–97
[2017-08-04] MEDS: METOPROLOL TARTRATE 50 MG TAB PO SCH ×2 (09:40→20:28)
[2017-08-04] MEDS: TIOTROPIUM BROMIDE 5 PUFF/90 MCG INH INH SCH (09:40)
[2017-08-04] MEDS: ESCITALOPRAM OXALATE 10 MG TAB PO SCH (09:41)
[2017-08-04] MEDS: RISPERIDONE 0.5 MG TAB PO SCH ×3 (09:41→20:29)
--- NOTE | 2017-08-04 19:20 | Progress Note ---
Medicine Progress Note Date & Time of Visit: Aug 03, 2017 at 17:04. Subjective seen resting in bed, comfortable states she feels fine denies new symptoms Objective Last 8 Hrs Date Time Temp Pulse Resp B/P (MAP) Pulse Ox O2 Delivery O2 Flow Rate FiO2 08/03/17 15:35 Nasal Cannula 2.0 08/03/17 15:11 36.3 59 22 137/84 (101) 96 Nasal Cannula 2.0 08/03/17 12:00 Nasal Cannula 2.0 08/03/17 11:25 36.5 60 16 119/76 (90) 94 2.0 Physical Exam: General- oriented x 3, not in distress, speaks in sentences with no effort Eyes- anicteric Neck- no JVD Lungs- clear breath sounds bl Heart- regular rhythm; (+) RPSB holosystolic murmur, normal rate Abdomen- normal bowel sounds, soft, nontender Extremities- no pretibial edema, no calf tenderness Neuro- alert, oriented x 3; no gross focal deficits Skin- warm & dry Laboratory Results: Last 24 Hours Test 08/03/17 06:22 Sodium Level 136 mmol/L Potassium Level 4.5 mmol/L Chloride Level 104 mmol/L Carbon Dioxide Level 25 mmol/L Anion Gap 7.0 mmol/L Blood Urea Nitrogen 28 mg/dl Creatinine 0.90 mg/dl Est Creatinine Clear Calc Drug Dose 44.6 ml/min Estimated GFR () 67.1 Estimated GFR (Non- 57.9 BUN/Creatinine Ratio 30.6 Random Glucose 127 mg/dl Calcium Level 9.4 mg/dl Assessment & Plan This is an 86 year old female with a PMH of COPD and chronic respiratory failure on 2L of O2 continuously, paroxysmal atrial fibrillation s/p multiple ablations and s/p pacemaker in situ - not a anticoagulation candidate due to bleeding risk, ulcerative colitis with episodes of rectal bleed, CKD stage 3 - presents with worsening shortness of breath Acute on Chronic Hypoxic Respiratory Failure likely secondary to Acute CHF secondary to Valvular Heart Disease chronically uses 2L of O2 cardiology consulted echo: -- Conclusions -- There is moderate concentric left ventricular hypertrophy. Ejection Fraction = 60-65%. The right ventricle is moderately dilated. The right ventricular systolic function is mild to moderately reduced. The left atrium is severely dilated. The right atrium is severely dilated. There is moderate to severe tricuspid regurgitation. There is mild to moderate mitral regurgitation. Aortic valve sclerosis moderate, without significant aortic valvular stenosis. Mild to moderate aortic regurgitation. The pulmonary artery systolic pressure is estimated to be 68 mmHg. given Bumex IV, good response Cardiology on board- now euvolemic, recommend PRN Bumex remains euvolemic Acute Kidney Injury resolved Major Depressive Disorder with Psychotic Features Psych consulted Lexapro and Risperidone BID started Risperidone further increased -- improving outpatient ff up with Psych Provider COPD stable continue Spiriva and chronic O2 use Paroxysmal A. Fib she is ventricularly paced currently continue b-jacinto not a candidate for anticoagulation; aspirin 81mg instead DVT ppx SCDs FULL CODE Disposition pending PT/OT recommends d/c to rehab/snf Psych cleared patient to be d/c transition to SNF when accepted Current Inpatient Medications: Current Inpatient Medications Medications (Trade) Dose Ordered Sig/Vero Route Start Time Stop Time Status Last Admin Dose Admin Acetaminophen (Tylenol Tab) 650 mg Q4H PRN PO 07/28/17 07:15 08/27/17 07:14 07/28/17 23:37 650 MG Nitroglycerin (Nitrostat Tab) 0.4 mg UD PRN SL 07/28/17 07:15 08/27/17 07:14 Metoprolol Tartrate (Lopressor Tab) 25 mg BID PO 07/28/17 09:30 08/27/17 09:29 08/03/17 08:52 25 MG Risperidone (Risperdal Tab) 0.5 mg HS PO 07/28/17 21:00 08/27/17 20:59 08/02/17 20:40 0.5 MG Miscellaneous Information (Order Awaiting Action) 1 ea QS N/A 07/28/17 16:00 08/27/17 15:59 Tramadol HCl (Ultram Tab) 25 mg Q6H PRN PO 07/28/17 07:15 08/27/17 07:14 08/01/17 21:09 25 MG Prochlorperazine Edisylate 5 mg/ Syringe 5 ml @ 5 mls/min Q6H PRN IV 07/28/17 07:15 08/27/17 07:14 Albuterol/ Ipratropium (Duoneb) 3 ml Q2H PRN INH 07/28/17 07:15 08/27/17 07:14 Tiotropium [place] (Spiriva Handihaler Inhaler) 2 puff QAM INH 07/28/17 09:30 08/27/17 09:29 08/03/17 08:52 2 PUFF Escitalopram Oxalate (Lexapro Tab) 10 mg QAM PO 07/30/17 09:00 08/29/17 08:59 08/03/17 08:52 10 MG Aspirin (Ecotrin Tab) 81 mg Q2D PO 07/30/17 09:00 08/29/17 08:59 08/03/17 08:52 81 MG Sodium Chloride ([place] Nasal [place]) 1 sprays PRN PRN NA 07/30/17 17:30 08/29/17 17:29 Risperidone (Risperdal Tab) 0.5 mg BID@0900,1400 PO 08/01/17 09:00 08/31/17 08:59 08/03/17 15:32 0.5 MG Hydrocortisone (Proctozone Hc 2.5% Crm) 1 appln DAILY PRN EXT 08/01/17 16:45 08/31/17 16:44 08/01/17 21:03 1 APPLN
[2017-08-04] MEDS: TRAMADOL HCL 50 MG TAB PO PRN (20:28)
[2017-08-05 07:14] VITALS: BP 125/81; PULSE 65; TEMP 36.6; O2SAT 95
[2017-08-05] MEDS: TIOTROPIUM BROMIDE 5 PUFF/90 MCG INH INH SCH (08:00)
[2017-08-05] MEDS: ESCITALOPRAM OXALATE 10 MG TAB PO SCH (08:00)
[2017-08-05] MEDS: RISPERIDONE 0.5 MG TAB PO SCH ×3 (08:01→20:56)
[2017-08-05] MEDS: METOPROLOL TARTRATE 50 MG TAB PO SCH ×2 (08:01→20:56)
[2017-08-05] MEDS: ASPIRIN 81 MG ECTAB PO SCH (08:02)
[2017-08-05 15:20] VITALS: BP 120/73; PULSE 65; TEMP 36.7; O2SAT 94
[2017-08-05 16:18] VITALS: O2SAT 94
[2017-08-05 19:33] VITALS: BP 163/82; PULSE 64; TEMP 36.4; O2SAT 90
[2017-08-05 20:04] VITALS: O2SAT 94
--- NOTE | 2017-08-05 20:15 | Progress Note ---
Medicine Progress Note Date & Time of Visit: Aug 05, 2017 at 20:11. Subjective patient seen resting in chair comfortable states she feels fine no dyspnea no other complaints Objective Last 8 Hrs Date Time Temp Pulse Resp B/P (MAP) Pulse Ox O2 Delivery O2 Flow Rate FiO2 08/05/17 20:04 94 Nasal Cannula 2.0 08/05/17 19:33 36.4 64 18 163/82 (109) 90 2.0 08/05/17 16:18 94 Nasal Cannula 2.0 08/05/17 15:20 36.7 65 18 120/73 (89) 94 2.0 Physical Exam: General- oriented x 3, not in distress, speaks in sentences with no effort Lungs- clear breath sounds bilaterally Heart- regular rhythm; (+) RPSB holosystolic murmur, normal rate Abdomen- normal bowel sounds, soft, nontender Extremities- no pretibial edema, no calf tenderness Neuro- alert, oriented x 3; no gross focal deficits Skin- warm & dry Assessment & Plan This is an 86 year old female with a PMH of COPD and chronic respiratory failure on 2L of O2 continuously, paroxysmal atrial fibrillation s/p multiple ablations and s/p pacemaker in situ - not a anticoagulation candidate due to bleeding risk, ulcerative colitis with episodes of rectal bleed, CKD stage 3 - presents with worsening shortness of breath Acute on Chronic Hypoxic Respiratory Failure likely secondary to Acute CHF secondary to Valvular Heart Disease chronically uses 2L of O2 cardiology consulted echo: -- Conclusions -- There is moderate concentric left ventricular hypertrophy. Ejection Fraction = 60-65%. The right ventricle is moderately dilated. The right ventricular systolic function is mild to moderately reduced. The left atrium is severely dilated. The right atrium is severely dilated. There is moderate to severe tricuspid regurgitation. There is mild to moderate mitral regurgitation. Aortic valve sclerosis moderate, without significant aortic valvular stenosis. Mild to moderate aortic regurgitation. The pulmonary artery systolic pressure is estimated to be 68 mmHg. given Bumex IV, good response Cardiology on board- now euvolemic, recommend PRN Bumex -- euvolemic Acute Kidney Injury resolved Major Depressive Disorder with Psychotic Features Psych consulted Lexapro and Risperidone BID started Risperidone further increased -- improving outpatient ff up with Psych Provider COPD stable continue Spiriva and chronic O2 use Paroxysmal A. Fib she is ventricularly paced currently continue b-jacinto not a candidate for anticoagulation; aspirin 81mg instead DVT ppx SCDs FULL CODE Disposition pending PT/OT recommends d/c to rehab/snf Psych cleared patient to be d/c transition to SNF when accepted Current Inpatient Medications: Current Inpatient Medications Medications (Trade) Dose Ordered Sig/Vero Route Start Time Stop Time Status Last Admin Dose Admin Acetaminophen (Tylenol Tab) 650 mg Q4H PRN PO 07/28/17 07:15 08/27/17 07:14 07/28/17 23:37 650 MG Nitroglycerin (Nitrostat Tab) 0.4 mg UD PRN SL 07/28/17 07:15 08/27/17 07:14 Metoprolol Tartrate (Lopressor Tab) 25 mg BID PO 07/28/17 09:30 08/27/17 09:29 08/05/17 08:01 25 MG Risperidone (Risperdal Tab) 0.5 mg HS PO 07/28/17 21:00 08/27/17 20:59 08/04/17 20:29 0.5 MG Miscellaneous Information (Order Awaiting Action) 1 ea QS N/A 07/28/17 16:00 08/27/17 15:59 Tramadol HCl (Ultram Tab) 25 mg Q6H PRN PO 07/28/17 07:15 08/27/17 07:14 08/04/17 20:28 25 MG Prochlorperazine Edisylate 5 mg/ Syringe 5 ml @ 5 mls/min Q6H PRN IV 07/28/17 07:15 08/27/17 07:14 Albuterol/ Ipratropium (Duoneb) 3 ml Q2H PRN INH 07/28/17 07:15 08/27/17 07:14 Tiotropium [place] (Spiriva Handihaler Inhaler) 2 puff QAM INH 07/28/17 09:30 08/27/17 09:29 08/05/17 08:00 2 PUFF Escitalopram Oxalate (Lexapro Tab) 10 mg QAM PO 07/30/17 09:00 08/29/17 08:59 08/05/17 08:00 10 MG Aspirin (Ecotrin Tab) 81 mg Q2D PO 07/30/17 09:00 08/29/17 08:59 08/05/17 08:02 81 MG Sodium Chloride ([place] Nasal [place]) 1 sprays PRN PRN NA 07/30/17 17:30 08/29/17 17:29 Risperidone (Risperdal Tab) 0.5 mg BID@0900,1400 PO 08/01/17 09:00 08/31/17 08:59 08/05/17 14:34 0.5 MG Hydrocortisone (Proctozone Hc 2.5% Crm) 1 appln DAILY PRN EXT 08/01/17 16:45 08/31/17 16:44 08/01/17 21:03 1 APPLN
[2017-08-05 23:44] VITALS: BP 129/80; PULSE 62; TEMP 36.5; O2SAT 94
[2017-08-06 07:21] VITALS: BP 153/83; PULSE 60; TEMP 36.3; O2SAT 97
[2017-08-06 07:40] VITALS: BP 152/79; PULSE 66
[2017-08-06] MEDS: TIOTROPIUM BROMIDE 5 PUFF/90 MCG INH INH SCH (07:40)
[2017-08-06] MEDS: RISPERIDONE 0.5 MG TAB PO SCH ×3 (07:41→20:28)
[2017-08-06] MEDS: METOPROLOL TARTRATE 50 MG TAB PO SCH ×2 (07:41→20:29)
[2017-08-06] MEDS: ESCITALOPRAM OXALATE 10 MG TAB PO SCH (07:41)
[2017-08-06] MEDS: TRAMADOL HCL 50 MG TAB PO PRN (11:52)
[2017-08-06 15:09] VITALS: BP 102/62; PULSE 62; TEMP 36.7; O2SAT 93
[2017-08-06 15:52] VITALS: O2SAT 93
--- NOTE | 2017-08-06 18:17 | Progress Note ---
Medicine Progress Note Date & Time of Visit: Aug 06, 2017 at 18:15. Subjective seen resting in chair states she feels somewhat dyspneic with ambulation today legs also starting to swell up no chest pain, dizziness no other symptoms Objective Last 8 Hrs Date Time Temp Pulse Resp B/P (MAP) Pulse Ox O2 Delivery O2 Flow Rate FiO2 08/06/17 15:52 93 Nasal Cannula 2.0 08/06/17 15:09 36.7 62 18 102/62 (75) 93 Nasal Cannula 2.0 Physical Exam: General- oriented x 3, not in distress, speaks in sentences with no effort Lungs- (+) rales bilaterally, no wheezing Heart- regular rhythm; (+) RPSB holosystolic murmur, normal rate Abdomen- normal bowel sounds, soft, nontender Extremities- trace lower leg edema, no calf tenderness Neuro- alert, oriented x 3; no gross focal deficits Skin- warm & dry Assessment & Plan This is an 86 year old female with a PMH of COPD and chronic respiratory failure on 2L of O2 continuously, paroxysmal atrial fibrillation s/p multiple ablations and s/p pacemaker in situ - not a anticoagulation candidate due to bleeding risk, ulcerative colitis with episodes of rectal bleed, CKD stage 3 - presents with worsening shortness of breath Acute on Chronic Hypoxic Respiratory Failure likely secondary to Acute CHF secondary to Valvular Heart Disease chronically uses 2L of O2 cardiology consulted echo: -- Conclusions -- There is moderate concentric left ventricular hypertrophy. Ejection Fraction = 60-65%. The right ventricle is moderately dilated. The right ventricular systolic function is mild to moderately reduced. The left atrium is severely dilated. The right atrium is severely dilated. There is moderate to severe tricuspid regurgitation. There is mild to moderate mitral regurgitation. Aortic valve sclerosis moderate, without significant aortic valvular stenosis. Mild to moderate aortic regurgitation. The pulmonary artery systolic pressure is estimated to be 68 mmHg. given Bumex IV, good response Cardiology on board- now euvolemic, recommend PRN Bumex -- (+) rales, leg edema today Bumex 1mg po given monitor Acute Kidney Injury resolved Major Depressive Disorder with Psychotic Features Psych consulted Lexapro and Risperidone BID started Risperidone further increased -- improving outpatient ff up with Psych Provider COPD stable continue Spiriva and chronic O2 use Paroxysmal A. Fib she is ventricularly paced currently continue b-jacinto not a candidate for anticoagulation; aspirin 81mg instead DVT ppx SCDs ambulation FULL CODE Disposition pending PT/OT recommends d/c to rehab/snf Psych cleared patient to be d/c transition to SNF when accepted Current Inpatient Medications: Current Inpatient Medications Medications (Trade) Dose Ordered Sig/Vero Route Start Time Stop Time Status Last Admin Dose Admin Acetaminophen (Tylenol Tab) 650 mg Q4H PRN PO 07/28/17 07:15 08/27/17 07:14 07/28/17 23:37 650 MG Nitroglycerin (Nitrostat Tab) 0.4 mg UD PRN SL 07/28/17 07:15 08/27/17 07:14 Metoprolol Tartrate (Lopressor Tab) 25 mg BID PO 07/28/17 09:30 08/27/17 09:29 08/06/17 07:41 25 MG Risperidone (Risperdal Tab) 0.5 mg HS PO 07/28/17 21:00 08/27/17 20:59 08/05/17 20:56 0.5 MG Miscellaneous Information (Order Awaiting Action) 1 ea QS N/A 07/28/17 16:00 08/27/17 15:59 Tramadol HCl (Ultram Tab) 25 mg Q6H PRN PO 07/28/17 07:15 08/27/17 07:14 08/06/17 11:52 25 MG Prochlorperazine Edisylate 5 mg/ Syringe 5 ml @ 5 mls/min Q6H PRN IV 07/28/17 07:15 08/27/17 07:14 Albuterol/ Ipratropium (Duoneb) 3 ml Q2H PRN INH 07/28/17 07:15 08/27/17 07:14 Tiotropium [place] (Spiriva Handihaler Inhaler) 2 puff QAM INH 07/28/17 09:30 08/27/17 09:29 08/06/17 07:40 2 PUFF Escitalopram Oxalate (Lexapro Tab) 10 mg QAM PO 07/30/17 09:00 08/29/17 08:59 08/06/17 07:41 10 MG Aspirin (Ecotrin Tab) 81 mg Q2D PO 07/30/17 09:00 08/29/17 08:59 08/05/17 08:02 81 MG Sodium Chloride ([place] Nasal [place]) 1 sprays PRN PRN NA 07/30/17 17:30 08/29/17 17:29 Risperidone (Risperdal Tab) 0.5 mg BID@0900,1400 PO 08/01/17 09:00 08/31/17 08:59 08/06/17 13:34 0.5 MG Hydrocortisone (Proctozone Hc 2.5% Crm) 1 appln DAILY PRN EXT 08/01/17 16:45 08/31/17 16:44 08/01/17 21:03 1 APPLN
[2017-08-06] MEDS ORDERED: BUMETANIDE 1 MG TAB PO ONE (18:30)
[2017-08-06 23:29] VITALS: BP 123/78; PULSE 60; TEMP 36.3; O2SAT 96
[2017-08-07 07:14] VITALS: BP 123/71; PULSE 63; TEMP 36.6; O2SAT 94
[2017-08-07 08:00] VITALS: O2SAT 94
[2017-08-07 08:51] VITALS: BP 103/56; PULSE 62
[2017-08-07] MEDS: ESCITALOPRAM OXALATE 10 MG TAB PO SCH (08:54)
[2017-08-07] MEDS: ASPIRIN 81 MG ECTAB PO SCH (08:54)
[2017-08-07] MEDS: RISPERIDONE 0.5 MG TAB PO SCH ×3 (08:54→20:31)
[2017-08-07] MEDS: METOPROLOL TARTRATE 50 MG TAB PO SCH ×2 (08:54→20:32)
[2017-08-07] MEDS: TIOTROPIUM BROMIDE 5 PUFF/90 MCG INH INH SCH (10:11)
[2017-08-07] MEDS: TRAMADOL HCL 50 MG TAB PO PRN (13:09)
[2017-08-07 15:12] VITALS: BP 136/77; PULSE 67; TEMP 36.3; O2SAT 90
[2017-08-07 17:12] LABS: CALCIUM 8.8 mg/dl (8.5-10.1); CREATININE 1.11 mg/dl (0.60-1.20)
[2017-08-07] MEDS ORDERED: BUMETANIDE 1 MG TAB PO STA (19:11)
--- NOTE | 2017-08-07 19:59 | Progress Note ---
Medicine Progress Note Date & Time of Visit: Aug 07, 2017 at 19:57. Subjective Seen resting in bed comfortable States dyspnea is less Still has some leg swelling No chest pain Denies other symptoms Objective Last 8 Hrs Date Time Temp Pulse Resp B/P (MAP) Pulse Ox O2 Delivery O2 Flow Rate FiO2 08/07/17 15:12 36.3 67 18 136/77 (96) 90 Nasal Cannula 2.0 Physical Exam: General- oriented x 3, not in distress, speaks in sentences with no effort Lungs- (+) mild rales bilaterally, no wheezing Heart- regular rhythm; (+) RPSB holosystolic murmur, normal rate Abdomen- normal bowel sounds, soft, nontender Extremities- trace-gr 1 lower leg edema, no calf tenderness Neuro- alert, oriented x 3; no gross focal deficits Skin- warm & dry Laboratory Results: Last 24 Hours Test 08/07/17 16:23 Sodium Level 132 mmol/L Potassium Level 4.0 mmol/L Chloride Level 97 mmol/L Carbon Dioxide Level 29 mmol/L Anion Gap 6.0 mmol/L Blood Urea Nitrogen 29 mg/dl Creatinine 1.11 mg/dl Est Creatinine Clear Calc Drug Dose 35.3 ml/min Estimated GFR () 51.7 Estimated GFR (Non- 44.6 BUN/Creatinine Ratio 25.7 Random Glucose 113 mg/dl Calcium Level 8.8 mg/dl Assessment & Plan This is an 86 year old female with a PMH of COPD and chronic respiratory failure on 2L of O2 continuously, paroxysmal atrial fibrillation s/p multiple ablations and s/p pacemaker in situ - not a anticoagulation candidate due to bleeding risk, ulcerative colitis with episodes of rectal bleed, CKD stage 3 - presents with worsening shortness of breath Acute on Chronic Hypoxic Respiratory Failure likely secondary to Acute CHF secondary to Valvular Heart Disease chronically uses 2L of O2 cardiology consulted echo: -- Conclusions -- There is moderate concentric left ventricular hypertrophy. Ejection Fraction = 60-65%. The right ventricle is moderately dilated. The right ventricular systolic function is mild to moderately reduced. The left atrium is severely dilated. The right atrium is severely dilated. There is moderate to severe tricuspid regurgitation. There is mild to moderate mitral regurgitation. Aortic valve sclerosis moderate, without significant aortic valvular stenosis. Mild to moderate aortic regurgitation. The pulmonary artery systolic pressure is estimated to be 68 mmHg. given Bumex IV, good response Cardiology on board- now euvolemic, recommend PRN Bumex -- (+) rales, leg edema Bumex 1mg po given 08/06 will give additional Bumex today monitor volumes status, crea monitor -- may need to be on Bumex 1mg po three times a week to maintain euvolemia Acute Kidney Injury resolved Major Depressive Disorder with Psychotic Features Psych consulted Lexapro and Risperidone BID started Risperidone further increased -- improving outpatient ff up with Psych Provider COPD stable continue Spiriva and chronic O2 use Paroxysmal A. Fib she is ventricularly paced currently continue b-jacinto not a candidate for anticoagulation; aspirin 81mg instead DVT ppx SCDs ambulation FULL CODE Disposition pending PT/OT recommends d/c to rehab/snf Psych cleared patient to be d/c transition to SNF when accepted Current Inpatient Medications: Current Inpatient Medications Medications (Trade) Dose Ordered Sig/Vero Route Start Time Stop Time Status Last Admin Dose Admin Acetaminophen (Tylenol Tab) 650 mg Q4H PRN PO 07/28/17 07:15 08/27/17 07:14 07/28/17 23:37 650 MG Nitroglycerin (Nitrostat Tab) 0.4 mg UD PRN SL 07/28/17 07:15 08/27/17 07:14 Metoprolol Tartrate (Lopressor Tab) 25 mg BID PO 07/28/17 09:30 08/27/17 09:29 08/07/17 08:54 25 MG Risperidone (Risperdal Tab) 0.5 mg HS PO 07/28/17 21:00 08/27/17 20:59 08/06/17 20:28 0.5 MG Miscellaneous Information (Order Awaiting Action) 1 ea QS N/A 07/28/17 16:00 08/27/17 15:59 Tramadol HCl (Ultram Tab) 25 mg Q6H PRN PO 07/28/17 07:15 08/27/17 07:14 08/07/17 13:09 25 MG Prochlorperazine Edisylate 5 mg/ Syringe 5 ml @ 5 mls/min Q6H PRN IV 07/28/17 07:15 08/27/17 07:14 Albuterol/ Ipratropium (Duoneb) 3 ml Q2H PRN INH 07/28/17 07:15 08/27/17 07:14 Tiotropium [place] (Spiriva Handihaler Inhaler) 2 puff QAM INH 07/28/17 09:30 08/27/17 09:29 08/07/17 10:11 2 PUFF Escitalopram Oxalate (Lexapro Tab) 10 mg QAM PO 07/30/17 09:00 08/29/17 08:59 08/07/17 08:54 10 MG Aspirin (Ecotrin Tab) 81 mg Q2D PO 07/30/17 09:00 08/29/17 08:59 08/07/17 08:54 81 MG Sodium Chloride ([place] Nasal [place]) 1 sprays PRN PRN NA 07/30/17 17:30 08/29/17 17:29 Risperidone (Risperdal Tab) 0.5 mg BID@0900,1400 PO 08/01/17 09:00 08/31/17 08:59 08/07/17 13:09 0.5 MG Hydrocortisone (Proctozone Hc 2.5% Crm) 1 appln DAILY PRN EXT 08/01/17 16:45 08/31/17 16:44 08/01/17 21:03 1 APPLN
[2017-08-07 20:27] VITALS: BP 115/63; PULSE 58
[2017-08-08 00:27] VITALS: BP 104/61; PULSE 61; TEMP 36.6; O2SAT 90
[2017-08-08] MEDS ORDERED: COUGH DROP (SUGAR FREE) LOZ 24 LOZ/1 BOX LOZ ONE (06:29)
[2017-08-08] MEDS: RISPERIDONE 0.5 MG TAB PO SCH ×2 (08:04→14:33)
[2017-08-08] MEDS: ESCITALOPRAM OXALATE 10 MG TAB PO SCH (08:05)
[2017-08-08] MEDS: METOPROLOL TARTRATE 50 MG TAB PO SCH (08:06)
[2017-08-08] MEDS: TIOTROPIUM BROMIDE 5 PUFF/90 MCG INH INH SCH (08:07)
[2017-08-08 08:27] VITALS: BP 149/71; PULSE 68; TEMP 36.7; O2SAT 91
[2017-08-08 09:07] LABS: CALCIUM 9.2 mg/dl (8.5-10.1); CREATININE 1.05 mg/dl (0.60-1.20); POTASSIUM 4.4 mmol/L (3.5-5.1)
--- NOTE | 2017-08-08 12:08 | Progress Note ---
Medicine Progress Note Date & Time of Visit: Aug 08, 2017 at 12:01. Subjective resting in bedside chair comfortable, in good spirits states she feels overall breathing is much better no leg pain still hears some music intermittently no other symptoms Objective Last 8 Hrs Date Time Temp Pulse Resp B/P (MAP) Pulse Ox O2 Delivery O2 Flow Rate FiO2 08/08/17 08:27 36.7 68 18 149/71 (97) 91 2.0 08/08/17 08:00 Nasal Cannula 3.0 Physical Exam: General- oriented x 3, not in distress, speaks in sentences with no effort Lungs- clear breath sounds bilaterally, no rales/wheezes Heart- regular rhythm; (+) RPSB holosystolic murmur, normal rate Abdomen- normal bowel sounds, soft, nontender Extremities- no lower leg edema, no calf tenderness Neuro- alert, oriented x 3; no gross focal deficits Skin- warm & dry Laboratory Results: Last 24 Hours Test 08/07/17 16:23 08/08/17 08:10 Sodium Level 132 mmol/L 134 mmol/L Potassium Level 4.0 mmol/L 4.4 mmol/L Chloride Level 97 mmol/L 100 mmol/L Carbon Dioxide Level 29 mmol/L 29 mmol/L Anion Gap 6.0 mmol/L 6.0 mmol/L Blood Urea Nitrogen 29 mg/dl 31 mg/dl Creatinine 1.11 mg/dl 1.05 mg/dl Est Creatinine Clear Calc Drug Dose 35.3 ml/min 37.4 ml/min Estimated GFR () 51.7 55.3 Estimated GFR (Non- 44.6 47.7 BUN/Creatinine Ratio 25.7 29.1 Random Glucose 113 mg/dl 135 mg/dl Calcium Level 8.8 mg/dl 9.2 mg/dl Assessment & Plan This is an 86 year old female with a PMH of COPD and chronic respiratory failure on 2L of O2 continuously, paroxysmal atrial fibrillation s/p multiple ablations and s/p pacemaker in situ - not a anticoagulation candidate due to bleeding risk, ulcerative colitis with episodes of rectal bleed, CKD stage 3 - presents with worsening shortness of breath Acute on Chronic Hypoxic Respiratory Failure likely secondary to Acute CHF secondary to Valvular Heart Disease chronically uses 2L of O2 cardiology consulted echo: -- Conclusions -- There is moderate concentric left ventricular hypertrophy. Ejection Fraction = 60-65%. The right ventricle is moderately dilated. The right ventricular systolic function is mild to moderately reduced. The left atrium is severely dilated. The right atrium is severely dilated. There is moderate to severe tricuspid regurgitation. There is mild to moderate mitral regurgitation. Aortic valve sclerosis moderate, without significant aortic valvular stenosis. Mild to moderate aortic regurgitation. The pulmonary artery systolic pressure is estimated to be 68 mmHg. given Bumex IV, good response Cardiology on board- now euvolemic, recommend PRN Bumex -- during admission, required 2 doses of Bumex po for rales and leg edema -- renal function stable -- will need Bumex 1 mg twice a week- Tues and Sat and Bumex 0.5mg po daily PRN for shortness of breath, leg edema -- monitor volume status closely 2g Na diet monitor renal function while on Bumex Acute Kidney Injury resolved Major Depressive Disorder with Psychotic Features Psych consulted Dr. Franklin patient report hearing "music", felt to be perceptual disturbance per Psych also showing signs of anxiety and paranoia- people at home conspiring against her Lexapro and Risperidone BID started, HS dose continued -- improving, mood is cheerful, patient remained pleasant, cooperative -- still hears "music" but less close outpatient ff up with Psych Provider COPD stable continue Spiriva and chronic O2 use Paroxysmal A. Fib she is ventricularly paced currently continue b-jacinto not a candidate for anticoagulation; aspirin 81mg instead Disposition pending PT/OT recommends d/c to rehab/snf: ambulates with rolling walker Psych cleared patient to be d/c transition to SNF ff up with Psych Provider closely Current Inpatient Medications: Current Inpatient Medications Medications (Trade) Dose Ordered Sig/Vero Route Start Time Stop Time Status Last Admin Dose Admin Acetaminophen (Tylenol Tab) 650 mg Q4H PRN PO 07/28/17 07:15 08/27/17 07:14 07/28/17 23:37 650 MG Nitroglycerin (Nitrostat Tab) 0.4 mg UD PRN SL 07/28/17 07:15 08/27/17 07:14 Metoprolol Tartrate (Lopressor Tab) 25 mg BID PO 07/28/17 09:30 08/27/17 09:29 08/08/17 08:06 25 MG Risperidone (Risperdal Tab) 0.5 mg HS PO 07/28/17 21:00 08/27/17 20:59 08/07/17 20:31 0.5 MG Miscellaneous Information (Order Awaiting Action) 1 ea QS N/A 07/28/17 16:00 08/27/17 15:59 Tramadol HCl (Ultram Tab) 25 mg Q6H PRN PO 07/28/17 07:15 08/27/17 07:14 08/07/17 13:09 25 MG Prochlorperazine Edisylate 5 mg/ Syringe 5 ml @ 5 mls/min Q6H PRN IV 07/28/17 07:15 08/27/17 07:14 Albuterol/ Ipratropium (Duoneb) 3 ml Q2H PRN INH 07/28/17 07:15 08/27/17 07:14 Tiotropium [place] (Spiriva Handihaler Inhaler) 2 puff QAM INH 07/28/17 09:30 08/27/17 09:29 08/08/17 08:07 2 PUFF Escitalopram Oxalate (Lexapro Tab) 10 mg QAM PO 07/30/17 09:00 08/29/17 08:59 08/08/17 08:05 10 MG Aspirin (Ecotrin Tab) 81 mg Q2D PO 07/30/17 09:00 08/29/17 08:59 08/07/17 08:54 81 MG Sodium Chloride ([place] Nasal [place]) 1 sprays PRN PRN NA 07/30/17 17:30 08/29/17 17:29 Risperidone (Risperdal Tab) 0.5 mg BID@0900,1400 PO 08/01/17 09:00 08/31/17 08:59 08/08/17 08:04 0.5 MG Hydrocortisone (Proctozone Hc 2.5% Crm) 1 appln DAILY PRN EXT 08/01/17 16:45 08/31/17 16:44 08/01/17 21:03 1 APPLN
[2017-08-08] MEDS ORDERED: LXP10 PO (12:15)
[2017-08-08] MEDS ORDERED: BUME1TAB PO (12:15)
[2017-08-08] MEDS ORDERED: METO50TA16 PO (12:15)
[2017-08-08] MEDS ORDERED: ANSHCCR EXT (12:15)
[2017-08-08] MEDS ORDERED: RISP-99 PO (12:15)
--- NOTE | 2017-08-08 12:20 | Discharge Instructions ---
Discharge Instructions Date of Service Aug 08, 2017. Admission Reason for Admission: Respiratory Failure Discharge Discharge Diagnosis / Problem: ACUTE ON CHRONIC RESPIRATORY FAILURE SECONDARY TO CHF, DIASTOLIC Discharge Goals Goal(s): Diagnostic testing, Therapeutic intervention Activity Recommendations Activity Level: Assistance Required Therapies: Physical Therapy, Occupational Therapy . Additional Information Patient informed of condition: Yes Advance Directives: No (UNKNOWN) DNR: No (PATIENT IS A FULL CODE) Level of Care: Skilled Communicable Disease: No Prognosis: Stable Oxygen at (LPM): 2 LITER VIA NASAL CANNULA AT ALL TIMES Instructions / Follow-Up Instructions / Follow-Up PLEASE MONITOR VOLUME STATUS AND TITRATE BUMEX ACCORDINGLY. PLEASE REFER TO ACCOMPANYING HOSPITAL DISCHARGE SUMMARY FOR FURTHER RECOMMENDATIONS. FOLLOW UP WITH PSYCHIATRIST OUTPATIENT CLOSELY. Current Hospital Diet Patient's current hospital diet: AHA Diet (Heart Healthy) Discharge Diet Recommended Diet: AHA Diet (Heart Healthy) Procedures Procedures Performed: CHEST XRAY, ECHOCARDIOGRAM, VENOUS DOPPLER STUDY OF THE LOWER LEGS Pending Studies Studies pending at discharge: yes List of pending studies: PLEASE REFER TO ACCOMPANYING HOSPITAL DISCHARGE SUMMARY FOR FURTHER RECOMMENDATIONS. Physician Orders On Transfer Special Precautions: PLEASE MONITOR VOLUME STATUS AND TITRATE BUMEX ACCORDINGLY. PLEASE REFER TO ACCOMPANYING HOSPITAL DISCHARGE SUMMARY FOR FURTHER RECOMMENDATIONS. FOLLOW UP WITH PSYCHIATRIST OUTPATIENT CLOSELY. Laboratory Results Hemoglobin A1c Test 07/28/17 04:55 Range/Units Estimated Average Glucose 151 mg/dl Hemoglobin A1c 6.9 H 4.5-5.6 % Medical Emergencies . Who to Call and When: Medical Emergencies: If at any time you feel your situation is an emergency, please call 911 immediately. . Non-Emergent Contact Non-Emergency issues call your: Primary Care Provider, Forming Yardage Control Operator, Specialist (Psychiatrist) Call Non-Emergent contact if: you have a fever . Past History Medical & Surgical History: (1) CHR AIRWAY OBSTRUCT NEC (2) DIAB ROBYN WO COMPL, TYPE II OR UNSPEC TYPE, NOT UNCNTRLD (3) ATRIAL FIBRILLATION (4) Respiratory failure (5) Acute exacerbation of CHF (congestive heart failure) (6) Medical non-compliance (7) Severe major depression, single episode, with psychotic features . "Provider Documentation" section prepared by Mack Rand. . Core Measure Problem Core Measures: None
--- NOTE | 2017-08-08 12:27 | Discharge Summary ---
Discharge Summary Date of Service Aug 08, 2017. Discharge Summary Admission Date: Jul 28, 2017 at 06:25 Discharge Date: Aug 08, 2017 Discharge Disposition: senior living facility Principal Diagnosis: Acute on Chronic Hypoxic Respiratory Failure likely secondary to Acute CHF secondary to Valvular Heart Disease, Diastolic Dysfunction Secondary Diagnoses/Problems: Please refer to hospital course below. Procedures: ECHO: * -- Conclusions -- * There is moderate concentric left ventricular hypertrophy. * Ejection Fraction = 60-65%. * The right ventricle is moderately dilated. * The right ventricular systolic function is mild to moderately reduced. * The left atrium is severely dilated. * The right atrium is severely dilated. * There is moderate to severe tricuspid regurgitation. * There is mild to moderate mitral regurgitation. * Aortic valve sclerosis moderate, without significant aortic valvular stenosis. * Mild to moderate aortic regurgitation. * The pulmonary artery systolic pressure is estimated to be 68 mmHg. SINGLE VIEW CHEST CLINICAL HISTORY: Dyspnea. FINDINGS: An AP, portable, upright chest radiograph is compared to study dated 12/05/2016. Correlation is made with chest CT dated 03/20/2013. The examination is degraded by portable technique and apical lordotic positioning. A 2-lead cardiac pacemaker partially obscures the left upper chest. The heart is enlarged and there is atherosclerotic calcification of the thoracic aorta. There is pulmonary vascular congestion and mild interstitial edema. There is emphysema and chronic interstitial thickening. Small pleural effusions are identified. No pneumothorax is seen. The skeletal structures are osteopenic. The bony thorax is grossly intact. IMPRESSION: 1. Cardiomegaly and cardiac pacemaker. There is evidence of congestive failure with mild interstitial edema. 2. Emphysema. 3. Small pleural effusions. Electronically signed by: Yakov Mendoza M.D. 07/28/2017 6:35 AM ULTRASOUND BILATERAL LOWER EXTREMITY VENOUS CLINICAL HISTORY: Lower extremity edema. COMPARISON STUDY: Bilateral lower extremity venous ultrasound dated 03/20/2013. TECHNIQUE: Real-time, grayscale, and color Doppler sonography of the deep veins of the right and left lower extremity was performed from the inguinal crease to the calf. Compression and augmentation were utilized. FINDINGS: There is no sonographic evidence of deep venous thrombosis identified in the right or left lower extremity. The common femoral, superficial femoral, and popliteal veins are patent and normally compressible bilaterally. The greater saphenous vein and the profunda femoris vein at the junction with the common femoral vein are clear in both legs. The visualized calf veins are patent bilaterally. IMPRESSION: There is no sonographic evidence of deep venous thrombosis identified in the right or left lower extremity. Electronically signed by: Yakov Mendoza M.D. 07/28/2017 11:22 AM Consultations: CARDIOLOGY MAGDA AGUILAR , PSYCHIATRY DR. OSBORNE Pending Studies/Follow-Up: PLEASE MONITOR VOLUME STATUS AND TITRATE BUMEX ACCORDINGLY. PLEASE REFER TO HOSPITAL COURSE BELOW FOR FURTHER RECOMMENDATIONS. FOLLOW UP WITH PSYCHIATRIST OUTPATIENT CLOSELY. Medication Reconciliation New Medications: Bumetanide (Bumex) 1 Mg Tab 1 TAB PO UD for 30 Days, #8 TAB 2 Refills take 1 tab po on tuesdays and saturdays (twice a week) Escitalopram Oxalate (Escitalopram Oxalate) 10 Mg Tab 10 MG PO QAM for 10 Days, #10 TAB 0 Refills Hydrocortisone (Proctosol Hc) 90 Appln/30 Gm Cr 1 APPLN EXT DAILY PRN for Hemorrhoids for 30 Days, #1 TUBE 2 Refills Metoprolol Tartrate (Lopressor) (Lopressor) 50 Mg Tab 25 MG PO BID for 30 Days, #30 TAB 2 Refills Risperidone (Risperidone) 0.5 Mg Tab 0.5 MG PO BID@0900,1400 for 10 Days, #20 TAB 0 Refills Continued Medications: Albuterol Hfa (Ventolin Hfa) 200 Puffs/34977 Mcg Aers 2 PUFFS INH Q6H PRN for SOB/Wheezing Aspirin (Aspirin Ec) 81 Mg Tab 81 MG PO Q2D Bumetanide (Bumetanide) 0.5 Mg Tab 0.5 MG PO DAILY PRN for WATER RETENTION Multiple Vitamins W/ Minerals (Icaps Lutein & Zeaxanthin) 1 Tab Tab 1 CAP PO QAM Risperidone (Risperidone) 0.5 Mg Tab 0.5 MG PO HS Tiotropium [place] (Spiriva Handihaler) 30 Puff/540 Mcg Aerp 2 PUFFS INH DAILY, INHALER Discontinued Medications: Metoprolol Tartrate (Lopressor) (Lopressor) 50 Mg Tab 50 MG PO BID, TAB Naproxen Sodium (Aleve) 220 Mg Tab 220 MG PO UD PRN for Pain Admission Information HPI (per Admitting provider): DATE OF ADMISSION: 07/28/2017 PRIMARY CARE PHYSICIAN: Dr. Red. CHIEF COMPLAINT: Shortness of breath. HISTORY OF PRESENT ILLNESS: History obtained from patient and records. Medical history significant for chronic respiratory failure secondary to COPD on home O2, past tobacco abuse, chronic diastolic heart failure as per records, EF of around 55-59%, HTN, paroxysmal AFib sp PPM, ablation, off anticoagulation because of bleeding risk, history of ulcerative colitis in remission, DM2 on oral meds, mood disorder, history of DVT as per records, Recent confinement last October 2014 under [facility] Cardiology service for AFib, status post successful AV quique ablation. This morning, patient woke up with cough symptoms productive of usual white sputum. Thinks cough symptoms related to grandson tinkering with her furnace. Increasing left-sided chest pain with coughing, increasing shortness of breath. Legs noted to be more swollen Only takes Bumex as needed. Denies dietary indiscretion. Denies aspiration. Patient brought to the Emergency Room. Received Bumex for CHF. MEDICAL HISTORY: As above. A 2D echo in September 2014 showed EF 55%, concentric LVH, biatrial enlargement, moderate aortic valve sclerosis, mild aortic valve regurgitation, severely calcified posterior mitral valve leaflet, mitral stenosis absent, mild MR. SURGERIES: She has had bilateral ligation, tonsillectomy, cataract surgery. HOME MEDICATIONS: Include risperidone, Spiriva, Ventolin, aspirin, bumetanide, multivitamins, Lopressor, Aleve, Bumex. ALLERGIES: BEE STING, FUROSEMIDE, WARFARIN, PROPOFOL, MESALAMINE, SULFA. FAMILY HISTORY: Heart disease, diabetes. PERSONAL AND SOCIAL HISTORY: Past tobacco abuse. No chronic intake of alcoholic beverages. Retired store employee. REVIEW OF SYSTEMS: As per HPI. All 10 systems reviewed. All other ROS negative. Physical Exam (per Admitting): VITAL SIGNS: Blood pressure was noted to be 150/87, pulse rate 90, RR 24, temperature 36.7, sats 88 on 2 liters, later 90 on 4 liters. GENERAL: Noted to be in minimal distress. Obese. Tangentiality/paranoia noted during encounter. SKIN: Normal color. Warm. NECK: Supple, short. CHEST: Decreased breath sounds. No wheezing. HEART: Regular rate and rhythm. Systolic murmur. ABDOMEN: Some distention, nontender. EXTREMITIES: Minimal LE edema, no tenderness. NEUROLOGIC: Coherent. No gross focality except for mild hearing impairment. Hospital Course This is an 86 year old female with a PMH of COPD and chronic respiratory failure on 2L of O2 continuously, paroxysmal atrial fibrillation s/p multiple ablations and s/p pacemaker in situ - not a anticoagulation candidate due to bleeding risk, ulcerative colitis with episodes of rectal bleed, CKD stage 3 - presents with worsening shortness of breath Acute on Chronic Hypoxic Respiratory Failure likely secondary to Acute CHF secondary to Valvular Heart Disease, Diastolic Dysfunction chronically uses 2L of O2 cardiology consulted MAGDA Aguilar echo: -- Conclusions -- There is moderate concentric left ventricular hypertrophy. Ejection Fraction = 60-65%. The right ventricle is moderately dilated. The right ventricular systolic function is mild to moderately reduced. The left atrium is severely dilated. The right atrium is severely dilated. There is moderate to severe tricuspid regurgitation. There is mild to moderate mitral regurgitation. Aortic valve sclerosis moderate, without significant aortic valvular stenosis. Mild to moderate aortic regurgitation. The pulmonary artery systolic pressure is estimated to be 68 mmHg. given Bumex IV, with good response -- during admission, required 2 doses of Bumex po for rales and leg edema -- renal function stable -- improved, now back to 2 L via nasal cannula -- will need Bumex 1 mg twice a week- Tues and Sat and Bumex 0.5mg po daily PRN for shortness of breath, leg edema -- monitor volume status closely 2g Na diet monitor renal function while on Bumex Acute Kidney Injury resolved Major Depressive Disorder with Psychotic Features Psych consulted Dr. Osborne patient report hearing "music", felt to be perceptual disturbance per Psych also showing signs of anxiety and paranoia- people at home conspiring against her Lexapro and Risperidone BID started, HS dose continued -- improving, mood is cheerful, patient remained pleasant, cooperative -- still hears "music" but less close outpatient ff up with Psych Provider COPD stable continue Spiriva and chronic O2 use Chronic A. Fib Atrial flutter status post ablation Status post permanent pacemaker implantation in February 2013. Status post AV junction ablation in October 2014 continue b-jacinto not a candidate for anticoagulation; aspirin 81mg instead Disposition PT/OT recommends d/c to rehab/snf: ambulates with rolling walker transition to SNF ff up with Psych Provider closely Total time spent on discharge = 40 minutes This includes examination of the patient, discharge planning, medication reconciliation, and communication with other providers. Discharge Instructions Discharge Instructions Date of Service Aug 08, 2017. Admission Reason for Admission: Respiratory Failure Discharge Discharge Diagnosis / Problem: ACUTE ON CHRONIC RESPIRATORY FAILURE SECONDARY TO CHF, DIASTOLIC Discharge Goals Goal(s): Diagnostic testing, Therapeutic intervention Activity Recommendations Activity Level: Assistance Required Therapies: Physical Therapy, Occupational Therapy . Additional Information Patient informed of condition: Yes Advance Directives: No (UNKNOWN) DNR: No (PATIENT IS A FULL CODE) Level of Care: Skilled Communicable Disease: No Prognosis: Stable Oxygen at (LPM): 2 LITER VIA NASAL CANNULA AT ALL TIMES Instructions / Follow-Up Instructions / Follow-Up PLEASE MONITOR VOLUME STATUS AND TITRATE BUMEX ACCORDINGLY. PLEASE REFER TO ACCOMPANYING HOSPITAL DISCHARGE SUMMARY FOR FURTHER RECOMMENDATIONS. FOLLOW UP WITH PSYCHIATRIST OUTPATIENT CLOSELY. Current Hospital Diet Patient's current hospital diet: AHA Diet (Heart Healthy) Discharge Diet Recommended Diet: AHA Diet (Heart Healthy) Procedures Procedures Performed: CHEST XRAY, ECHOCARDIOGRAM, VENOUS DOPPLER STUDY OF THE LOWER LEGS Pending Studies Studies pending at discharge: yes List of pending studies: PLEASE REFER TO ACCOMPANYING HOSPITAL DISCHARGE SUMMARY FOR FURTHER RECOMMENDATIONS. Physician Orders On Transfer Special Precautions: PLEASE MONITOR VOLUME STATUS AND TITRATE BUMEX ACCORDINGLY. PLEASE REFER TO ACCOMPANYING HOSPITAL DISCHARGE SUMMARY FOR FURTHER RECOMMENDATIONS. FOLLOW UP WITH PSYCHIATRIST OUTPATIENT CLOSELY. Laboratory Results Hemoglobin A1c Test 07/28/17 04:55 Range/Units Estimated Average Glucose 151 mg/dl Hemoglobin A1c 6.9 H 4.5-5.6 % Medical Emergencies . Who to Call and When: Medical Emergencies: If at any time you feel your situation is an emergency, please call 911 immediately. . Non-Emergent Contact Non-Emergency issues call your: Primary Care Provider, Biomedical Engineer, Specialist (Psychiatrist) Call Non-Emergent contact if: you have a fever . Past History Medical & Surgical History: (1) CHR AIRWAY OBSTRUCT NEC (2) DIAB ROBYN WO COMPL, TYPE II OR UNSPEC TYPE, NOT UNCNTRLD (3) ATRIAL FIBRILLATION (4) Respiratory failure (5) Acute exacerbation of CHF (congestive heart failure) (6) Medical non-compliance (7) Severe major depression, single episode, with psychotic features . "Provider Documentation" section prepared by Mack Rand. . Core Measure Problem Core Measures: None
[2017-08-08 14:20] VITALS: BP 149/71; PULSE 68; TEMP 36.7; O2SAT 91
== END 2017-08-08 15:30 | DRG 314 ==
LOC: EDBD 05:08 → C.EDA 05:09 → C.MED 06:25 → ENRESERV 07:08 → C.MS2W 08-05 23:12
PROVIDERS: ADMIT Family Medicine; ATTEND Internal Medicine
DX: I27.20 Pulmonary hypertension, unspecified (principal); J96.21 Acute and chronic respiratory failure with hypoxia; I50.33 Acute on chronic diastolic (congestive) heart failure; I13.0 Hypertensive heart and chronic kidney disease with heart failure and stage 1 through stage 4 chronic kidney disease, or unspecified chronic kidney disease; F32.3 Major depressive disorder, single episode, severe with psychotic features; N17.9 Acute kidney failure, unspecified; J44.9 Chronic obstructive pulmonary disease, unspecified; I48.2 Chronic atrial fibrillation; E11.22 Type 2 diabetes mellitus with diabetic chronic kidney disease; N18.3 Chronic kidney disease, stage 3 (moderate); D69.6 Thrombocytopenia, unspecified; E78.5 Hyperlipidemia, unspecified; I08.2 Rheumatic disorders of both aortic and tricuspid valves; E66.9 Obesity, unspecified; Z68.32 Body mass index [BMI] 32.0-32.9, adult; Z87.19 Personal history of other diseases of the digestive system; Z86.718 Personal history of other venous thrombosis and embolism; Z87.891 Personal history of nicotine dependence; Z95.0 Presence of cardiac pacemaker; Z98.890 Other specified postprocedural states; Z99.81 Dependence on supplemental oxygen; Z79.82 Long term (current) use of aspirin; Z79.899 Other long term (current) drug therapy; Z88.2 Allergy status to sulfonamides; Z88.4 Allergy status to anesthetic agent; Z88.8 Allergy status to other drugs, medicaments and biological substances; Z91.030 Bee allergy status; Z98.51 Tubal ligation status; Z98.49 Cataract extraction status, unspecified eye; Z90.49 Acquired absence of other specified parts of digestive tract; Z82.49 Family history of ischemic heart disease and other diseases of the circulatory system; Z83.3 Family history of diabetes mellitus

== ENCOUNTER → 2017-08-12 | Outpatient (CLI) | payer OTHER ==
[~2017-08-12] MED LIST changes: +ANSHCCR EXT; +BUME1TAB PO; +LXP10 PO; -NAPR220T40 PO; +RISP-99 PO; +RISP0.5T4 PO; +VNTHFA/IN INH
[2017-08-12 09:03] LABS: BLOOD UREA NITROGEN 28 mg/dl (7-18); CARBON DIOXIDE 28 mmol/L (21-32); CREATININE 0.92 mg/dl (0.60-1.20); GLUCOSE 127 mg/dl (70-99); POTASSIUM 4.2 mmol/L (3.5-5.1); SODIUM 136 mmol/L (136-145)
== END ==
LOC: C.LABCC 08:26
PROVIDERS: ATTEND Internal Medicine
DX: I50.9 Heart failure, unspecified (principal)